=== PATIENT | male | born 1935 | race Caucasian/White ===

== ENCOUNTER 2016-11-24 22:29 | Emergency (ER) | payer BC ==
[~2016-11-24] VITALS: Ht 165.1 cm; Wt 86.2 kg
[2016-11-25 00:54] VITALS: BP 133/69
== END 2016-11-25 00:55 | disposition home or self-care (01) ==
LOC: ER 22:35
DX: S47.1XXA Crushing injury of right shoulder and upper arm, initial encounter (principal); I10 Essential (primary) hypertension; I25.2 Old myocardial infarction; Z95.811 Presence of heart assist device; W01.198A Fall on same level from slipping, tripping and stumbling with subsequent striking against other object, initial encounter; Y93.89 Activity, other specified; Y92.89 Other specified places as the place of occurrence of the external cause; Y99.8 Other external cause status
CPT/HCPCS: 73030; 99284; A4606; Z7610

== ENCOUNTER 2019-03-26 14:23 | Emergency (ER) | payer BC ==
[~2019-03-26] VITALS: Ht 165.1 cm; Wt 81.6 kg
[2019-03-26 14:23] VITALS: BP 116/73
[2019-03-26 15:12] LABS: APPEARANCE,URINE Clear (CLEAR); BILIRUBIN,URINE Negative (NEGATIVE); BLOOD, URINE Negative Ery/uL (NEGATIVE); COLOR,URINE Yellow (YELLOW); KETONES,URINE Negative (NEGATIVE); LEUKOCYTE ESTERASE ,URINE Negative (NEGATIVE); NITRITE, URINE Negative (NEGATIVE); PROTEIN,URINE 30 mg/dl (NEGATIVE); UGLUCOSE Negative (NEGATIVE); UROBILINOGEN,URINE 0.2 EU/dL (0.2)
--- NOTE | 2019-03-26 15:40 | NUR ---
CALLED [facility] TO READ IMAGES
[2019-03-26] MEDS ORDERED: LACTULOSE 10 G/15 ML UDC (PYXIS) GT ONE (16:00)
[2019-03-26] MEDS ORDERED: MAGNESIUM CITRATE 296 ML BOTTLE PO ONE (16:00)
== END 2019-03-26 16:20 | disposition home or self-care (01) ==
LOC: ER 14:26
DX: K59.00 Constipation, unspecified (principal); I10 Essential (primary) hypertension; I25.2 Old myocardial infarction; E78.00 Pure hypercholesterolemia, unspecified; Z95.5 Presence of coronary angioplasty implant and graft; Z98.890 Other specified postprocedural states; Z95.1 Presence of aortocoronary bypass graft
CPT/HCPCS: 74022-TC; 81000-TC

== ENCOUNTER 2019-08-06 07:37 | Emergency (ER) | payer BC ==
[~2019-08-06] VITALS: Ht 157.5 cm; Wt 87.5 kg
[2019-08-06] MEDS ORDERED: IV NS 0.9% 500 ML BAG IV ONE (08:30)
[2019-08-06 08:51] LABS: BASOPHILS # (AUTO) 0.1 /CMM (0.0-0.2); BASOPHILS % (AUTO) 1.3 % (0.0-2.0); EOSINOPHILS % (AUTO) 2.9 % (0.0-6.0); HEMATOCRIT 32 % (39-51); HEMOGLOBIN 10.5 g/dL (13.5-17.5); LYMPHOCYTES % (AUTO) 13.6 % (20.0-44.0); MEAN CORPUSCULAR HGB CONC 33 g/dl (31.0-36.0); MEAN CORPUSCULAR VOLUME 93 fL (80-96); MONOCYTES # (AUTO) 0.7 /CMM (0.1-1.30); MONOCYTES % (AUTO) 8.8 % (2.0-12.0); NEUTROPHILS # (AUTO) 5.6 /CMM (1.8-8.9); NEUTROPHILS % (AUTO) 73.4 % (43.0-81.0); PLATELET COUNT (AUTO) 157 /CMM (150-450); RED BLOOD CELL COUNT(AUTO) 3.42 MIL/uL (4.5-6.0); WHITE BLOOD COUNT (AUTO) 7.6 K/uL (4.3-11.0)
[2019-08-06 08:52] LABS: CALCIUM, SERUM 8.4 mg/dL (8.5-10.1); CARBON DIOXIDE 36 mmol/L (21-32); CHLORIDE 104 mmol/L (98-107); CREATININE 2.1 mg/dL (0.6-1.3); GLUCOSE 116 mg/dL (74-106); POTASSIUM 4.8 mmol/L (3.5-5.1); SODIUM SERUM 141 mmol/L (136-145); UREA NITROGEN, BLOOD 38 mg/dL (7-18)
--- NOTE | 2019-08-06 09:00 | NUR ---
Family at bedside both aware of plan of care
[2019-08-06] MEDS ORDERED: ASPI-605 PO (09:53)
[2019-08-06] MEDS ORDERED: AMLO5TAB9 PO (09:53)
[2019-08-06] MEDS ORDERED: CARV12.52 PO (09:53)
[2019-08-06] MEDS ORDERED: FAMO20TA8 PO (09:53)
[2019-08-06] MEDS ORDERED: FURO20TA4 PO (09:53)
[2019-08-06] MEDS ORDERED: ROSU20TA32 PO (09:53)
[2019-08-06] MEDS ORDERED: METO5TAB7 PO (09:53)
[2019-08-06] MEDS ORDERED: LEVO25TA9 PO (09:53)
[2019-08-06] MEDS ORDERED: FURO40TA5 PO (09:53)
[2019-08-06] MEDS ORDERED: CLOP75TA15 PO (09:53)
[2019-08-06] MEDS ORDERED: AMIO200T4 PO (09:53)
[2019-08-06] MEDS ORDERED: BENA40TA8 PO (09:53)
[2019-08-06] MEDS ORDERED: ERGO500040 PO (09:53)
--- NOTE | 2019-08-06 10:36 | NUR ---
Sleeping on/off appears in NO acute distress updated with plan
--- NOTE | 2019-08-06 12:29 | NUR ---
Patient discharged to home in stable condition. Written and verbal after care instructions given. Patient verbalizes understanding of instruction. IV removed. Catheter intact and site benign. Pressure and 4x4 applied to site. No bleeding noted.
[2019-08-06 12:52] VITALS: BP 131/85
== END 2019-08-06 12:53 | disposition home or self-care (01) ==
LOC: ER 07:37
DX: K56.7 Ileus, unspecified (principal); I10 Essential (primary) hypertension; I25.2 Old myocardial infarction; Z95.818 Presence of other cardiac implants and grafts; Z79.899 Other long term (current) drug therapy; Z79.82 Long term (current) use of aspirin
CPT/HCPCS: 36415; 74021; 80048; 85025; 99284; J7040

== ENCOUNTER 2020-08-17 19:51 | Emergency (ER) | payer BC, MEDICARE ==
[~2020-08-17] VITALS: Ht 165.1 cm; Wt 81.6 kg
[~2020-08-17 19:51] MED LIST: AMIO200T4 PO; AMLO5TAB9 PO; ASPI-605 PO; BENA40TA8 PO; CARV12.52 PO; CLOP75TA15 PO; ERGO500040 PO; FAMO20TA8 PO; FURO20TA4 PO; LEVO25TA9 PO; METO5TAB7 PO; ROSU20TA32 PO
--- NOTE | 2020-08-17 20:03 | NUR ---
PT AAOX4. BIBSELF C/O CHRONIC CONSIPATION. PER PT LAST BM 3DAYS AGO, TAKES MAG CITRATE/DSS/AMITIZA. PT PLACED IN A GOWN, ON MONITOR AND PULSE OX. VSS.
[2020-08-17] MEDS ORDERED: BISACODYL SUPP (10 MG) 10 MG/SUPP.RECT SUPP.RECT RC ONE ×2 (20:30→20:51)
--- NOTE | 2020-08-17 20:42 | NUR ---
LINE ESTABLISHED, BLOOD SENT TO LAB
[2020-08-17 21:07] LABS: BASOPHILS # (AUTO) 0.1 /CMM (0.0-0.2); BASOPHILS % (AUTO) 0.8 % (0.0-2.0); HEMATOCRIT 35 % (39-51); HEMOGLOBIN 10.8 g/dL (13.5-17.5); LYMPHOCYTES # (AUTO) 1.2 /CMM (0.8-4.8); LYMPHOCYTES % (AUTO) 18.3 % (20.0-44.0); MEAN CORPUSCULAR HGB CONC 31 g/dl (31.0-36.0); MEAN CORPUSCULAR VOLUME 90 fL (80-96); MONOCYTES # (AUTO) 0.4 /CMM (0.1-1.30); MONOCYTES % (AUTO) 6.4 % (2.0-12.0); NEUTROPHILS # (AUTO) 4.6 /CMM (1.8-8.9); NEUTROPHILS % (AUTO) 71.5 % (43.0-81.0); PLATELET COUNT (AUTO) 164 /CMM (150-450); RED BLOOD CELL COUNT(AUTO) 3.82 MIL/uL (4.5-6.0); WHITE BLOOD COUNT (AUTO) 6.4 K/uL (4.3-11.0)
[2020-08-17 21:13] LABS: ALANINE AMINOTRANSFERASE 18 U/L (12-78); ALBUMIN 3.5 g/dL (3.4-5.0); ALKALINE PHOSPHATASE 77 U/L (46-116); ASPARTATE AMINOTRANSFERASE 21 U/L (15-37); BILIRUBIN,DIRECT 0.2 mg/dL (0.0-0.2); BILIRUBIN,TOTAL 0.6 mg/dL (0.2-1.0); CALCIUM, SERUM 8.5 mg/dL (8.5-10.1); CARBON DIOXIDE 28 mmol/L (21-32); CHLORIDE 103 mmol/L (98-107); CREATININE 1.5 mg/dL (0.6-1.3); GLUCOSE 100 mg/dL (74-106); LIPASE 78 U/L (73-393); POTASSIUM 4.5 mmol/L (3.5-5.1); SODIUM SERUM 137 mmol/L (136-145); TOTAL PROTEIN, SERUM 7.7 g/dL (6.4-8.2); UREA NITROGEN, BLOOD 21 mg/dL (7-18)
[2020-08-17] MEDS ORDERED: IOHEXOL-300 100 ML VIAL IV ONE (21:25)
[2020-08-17] MEDS ORDERED: IV NS 0.9% 250 ML IV ONE (21:25)
[2020-08-17] MEDS ORDERED: CT SWABBABLE VALVE TRANS SET 1 EA INFUS.SET MC ONE (21:25)
--- NOTE | 2020-08-17 21:25 | NUR ---
RADIOLOGIST SPEAKING TO REGARDING CT W.
--- NOTE | 2020-08-17 23:03 | NUR ---
Patient discharged to home in stable condition. Written and verbal after care instructions given. Patient verbalizes understanding of instruction and RX. Pt ambulated with steady gait. vss.
--- NOTE | 2020-08-17 23:03 | NUR ---
IV removed. Catheter intact and site benign. Pressure and 4x4 applied to site. No bleeding noted.
[2020-08-17 23:04] VITALS: BP 134/72
== END 2020-08-17 23:04 | disposition home or self-care (01) ==
LOC: ER 19:52
DX: K59.00 Constipation, unspecified (principal); I10 Essential (primary) hypertension; E78.00 Pure hypercholesterolemia, unspecified; I25.2 Old myocardial infarction; Z95.5 Presence of coronary angioplasty implant and graft; Z95.1 Presence of aortocoronary bypass graft; Z79.82 Long term (current) use of aspirin; Z79.899 Other long term (current) drug therapy
CPT/HCPCS: 36415; 74176; 80048; 80076; 83690; 85025; 99284; J7050; Q9967

== ENCOUNTER 2020-10-06 18:53 | Emergency (ER) | payer BC ==
[~2020-10-06] VITALS: Ht 165.1 cm; Wt 83.9 kg
[~2020-10-06 18:53] MED LIST changes: -AMIO200T4 PO; +AMIO200T5 PO; +AMLO-212 PO; -AMLO5TAB9 PO
--- NOTE | 2020-10-06 20:22 | NUR ---
PATIENT CAME TO ER BED 12 C/O CONSTIPATION FOR THE LAST 4x DAYS. PATIENT STATES THAT HE HAS BEEN TAKING A MEDICATION FOR CONSTIPATION, BUT IT ISN'T HELPING. PATIENT IS AAOX4. NO SOB .BREATHING EVENLY AND UNLABORED ON ROOM AIR. CONNECTED TO THE MONITOR.
[2020-10-06 20:54] LABS: BASOPHILS # (AUTO) 0.1 /CMM (0.0-0.2); BASOPHILS % (AUTO) 0.8 % (0.0-2.0); EOSINOPHILS % (AUTO) 2.9 % (0.0-6.0); HEMATOCRIT 35 % (39-51); HEMOGLOBIN 11.1 g/dL (13.5-17.5); LYMPHOCYTES # (AUTO) 1.4 /CMM (0.8-4.8); LYMPHOCYTES % (AUTO) 17.6 % (20.0-44.0); MEAN CORPUSCULAR HGB CONC 32 g/dl (31.0-36.0); MEAN CORPUSCULAR VOLUME 88 fL (80-96); MONOCYTES # (AUTO) 0.6 /CMM (0.1-1.30); MONOCYTES % (AUTO) 7.5 % (2.0-12.0); NEUTROPHILS # (AUTO) 5.8 /CMM (1.8-8.9); NEUTROPHILS % (AUTO) 71.2 % (43.0-81.0); PLATELET COUNT (AUTO) 183 /CMM (150-450); RED BLOOD CELL COUNT(AUTO) 3.95 MIL/uL (4.5-6.0); WHITE BLOOD COUNT (AUTO) 8.1 K/uL (4.3-11.0)
[2020-10-06 21:06] LABS: CARBON DIOXIDE 32 mmol/L (21-32); CHLORIDE 99 mmol/L (98-107); CREATININE 1.7 mg/dL (0.6-1.3); GLUCOSE 98 mg/dL (74-106); POTASSIUM 3.7 mmol/L (3.5-5.1); SODIUM SERUM 138 mmol/L (136-145); UREA NITROGEN, BLOOD 39 mg/dL (7-18)
[2020-10-06 21:11] LABS: ALANINE AMINOTRANSFERASE 16 U/L (12-78); ALBUMIN 3.6 g/dL (3.4-5.0); ALKALINE PHOSPHATASE 69 U/L (46-116); ASPARTATE AMINOTRANSFERASE 24 U/L (15-37); BILIRUBIN,DIRECT 0.2 mg/dL (0.0-0.2); BILIRUBIN,TOTAL 0.4 mg/dL (0.2-1.0); LIPASE 100 U/L (73-393); TOTAL PROTEIN, SERUM 7.7 g/dL (6.4-8.2)
[2020-10-06] MEDS ORDERED: IV NS 0.9% 500 ML BAG IV ONE (21:30)
[2020-10-06] MEDS ORDERED: BISACODYL SUPP (10 MG) 10 MG/SUPP.RECT SUPP.RECT RC ONE ×2 (21:53→22:00)
[2020-10-06] MEDS ORDERED: NA PHOS,M-B/NA PHOS,DI-BA 1 EA ENEMA RC ONE (22:00)
[2020-10-06] MEDS ORDERED: MINERAL OIL 133 ML (PYXIS) 1 EA ENEMA RC ONE (22:10)
--- NOTE | 2020-10-06 22:36 | NUR ---
AMBULATED TO THE RESTROOM WITH A STEADY GAIT.
--- NOTE | 2020-10-06 23:07 | NUR ---
IV removed. Catheter intact and site benign. Pressure and 4x4 applied to site. No bleeding noted.
--- NOTE | 2020-10-06 23:07 | NUR ---
Patient discharged to home in stable condition. Written and verbal after care instructions given. Patient verbalizes understanding of instruction.
[2020-10-06 23:58] VITALS: BP 112/72
== END 2020-10-06 23:58 | disposition home or self-care (01) ==
LOC: ER 18:58
DX: K59.00 Constipation, unspecified (principal); I10 Essential (primary) hypertension; I25.10 Atherosclerotic heart disease of native coronary artery without angina pectoris; E78.5 Hyperlipidemia, unspecified; E03.9 Hypothyroidism, unspecified; I25.2 Old myocardial infarction; Z95.818 Presence of other cardiac implants and grafts; Z79.899 Other long term (current) drug therapy; Z79.82 Long term (current) use of aspirin
CPT/HCPCS: 36415; 80048-TC; 80076-TC; 83690-TC; 85025-TC

== ENCOUNTER 2021-05-30 14:53 | Emergency (ER) | payer BC ==
[~2021-05-30] VITALS: Ht 167.6 cm; Wt 79.4 kg
--- NOTE | 2021-05-30 15:20 | NUR ---
DR ALFARO AT BEDSIDE FOR EVAL.
--- NOTE | 2021-05-30 15:55 | NUR ---
IV LINE STARTED BLOOD DRAWN AND SENT TO LAB.
[2021-05-30] MEDS ORDERED: DIAZEPAM 5 MG TABLET ONE (16:01)
[2021-05-30] MEDS ORDERED: KETOROLAC TROMETHAMINE INJ 30 MG/ML VIAL ONE (16:02)
[2021-05-30] MEDS: DIAZEPAM 5 MG TABLET PO ONE (16:05)
[2021-05-30] MEDS: KETOROLAC TROMETHAMINE INJ 60 MG/2 ML VIAL IM ONE (16:05)
--- NOTE | 2021-05-30 16:06 | NUR ---
PT TO RADIOLOGY FOR HEAD CT SCAN VIA [facility].
[2021-05-30 16:14] LABS: HEMOGLOBIN 12.8 g/dL (13.5-17.5)
[2021-05-30 16:19] LABS: BASOPHILS % (AUTO) 0.4 % (0.0-2.0); EOSINOPHILS % (AUTO) 0.4 % (0.0-6.0); HEMATOCRIT 39 % (39-51); LYMPHOCYTES # (AUTO) 1.1 K/uL (0.8-4.8); LYMPHOCYTES % (AUTO) 11.4 % (20.0-44.0); MEAN CORPUSCULAR HGB CONC 33 g/dl (31.0-36.0); MEAN CORPUSCULAR VOLUME 87 fL (80-96); MONOCYTES # (AUTO) 0.6 K/uL (0.1-1.30); MONOCYTES % (AUTO) 5.8 % (2.0-12.0); NEUTROPHILS # (AUTO) 7.9 K/uL (1.8-8.9); PLATELET COUNT (AUTO) 214 K/uL (150-450); RED BLOOD CELL COUNT(AUTO) 4.52 MIL/uL (4.5-6.0); WHITE BLOOD COUNT (AUTO) 9.6 K/uL (4.3-11.0)
[2021-05-30 16:22] LABS: ALBUMIN 3.5 g/dL (3.4-5.0); BILIRUBIN,DIRECT 0.2 mg/dL (0.0-0.2); BILIRUBIN,TOTAL 0.8 mg/dL (0.2-1.0); CALCIUM, SERUM 8.8 mg/dL (8.5-10.1); CREATININE 1.3 mg/dL (0.6-1.3); POTASSIUM 4.5 mmol/L (3.5-5.1); TOTAL PROTEIN, SERUM 7.7 g/dL (6.4-8.2)
[2021-05-30] MEDS ORDERED: NAPR-1164 PO (17:13)
[2021-05-30] MEDS ORDERED: CYCL10TA9 PO (17:13)
--- NOTE | 2021-05-30 17:28 | NUR ---
Patient discharged to home in stable condition. Written and verbal after care instructions given. Patient verbalizes understanding of instruction.IV removed. Catheter intact and site benign. Pressure and 4x4 applied to site. No bleeding noted.
[2021-05-30 17:29] VITALS: BP 152/82
== END 2021-05-30 17:29 | disposition home or self-care (01) ==
LOC: ER 15:00
DX: M54.2 Cervicalgia (principal); R51.9 Headache, unspecified; I25.10 Atherosclerotic heart disease of native coronary artery without angina pectoris; I10 Essential (primary) hypertension; E78.5 Hyperlipidemia, unspecified; E03.9 Hypothyroidism, unspecified; I25.2 Old myocardial infarction; Z95.5 Presence of coronary angioplasty implant and graft; Z95.1 Presence of aortocoronary bypass graft; Z95.4 Presence of other heart-valve replacement; Z79.82 Long term (current) use of aspirin; Z79.899 Other long term (current) drug therapy
CPT/HCPCS: 70450; 71045; 72125; 80048; 80076; 85025; 93005; 96374; 99285; J1885

== ENCOUNTER 2021-06-21 15:57 | Emergency (ER) | payer BC ==
[~2021-06-21] VITALS: Ht 157.5 cm; Wt 83.9 kg
[~2021-06-21 15:57] MED LIST changes: +CYCL10TA9 PO; +NAPR-1164 PO
--- NOTE | 2021-06-21 15:57 | NUR ---
PT BIB C/O ABDOMINAL PAIN AND CONSTIPATION FOR 2 DAYS. PT IS AAOX4, NOT IN RESPIRATORY DISTRESS, V/S STABLE, KEPT RESTED AND COMFORTABLE. WILL CONTINUE TO MONITOR.
--- NOTE | 2021-06-21 16:45 | NUR ---
SEEN AND EXAMINED BY .
--- NOTE | 2021-06-21 16:52 | NUR ---
ER PHLEB AT BEDSIDE FOR BLOOD DRAW.
[2021-06-21 17:32] LABS: BASOPHILS % (AUTO) 0.6 % (0.0-2.0); EOSINOPHILS % (AUTO) 2.8 % (0.0-6.0); HEMATOCRIT 36 % (39-51); HEMOGLOBIN 11.6 g/dL (13.5-17.5); LYMPHOCYTES # (AUTO) 1.5 K/uL (0.8-4.8); LYMPHOCYTES % (AUTO) 21.7 % (20.0-44.0); MEAN CORPUSCULAR HGB CONC 33 g/dl (31.0-36.0); MEAN CORPUSCULAR VOLUME 88 fL (80-96); MONOCYTES # (AUTO) 0.6 K/uL (0.1-1.30); MONOCYTES % (AUTO) 8.7 % (2.0-12.0); NEUTROPHILS # (AUTO) 4.5 K/uL (1.8-8.9); NEUTROPHILS % (AUTO) 66.2 % (43.0-81.0); PLATELET COUNT (AUTO) 184 K/uL (150-450); RED BLOOD CELL COUNT(AUTO) 4.04 MIL/uL (4.5-6.0); WHITE BLOOD COUNT (AUTO) 6.9 K/uL (4.3-11.0)
--- NOTE | 2021-06-21 17:44 | NUR ---
PT IS WHEELED TO CT SCAN VIA [facility].
[2021-06-21 17:48] LABS: ALANINE AMINOTRANSFERASE 22 U/L (12-78); ALBUMIN 3.6 g/dL (3.4-5.0); ALKALINE PHOSPHATASE 79 U/L (46-116); ASPARTATE AMINOTRANSFERASE 19 U/L (15-37); BILIRUBIN,TOTAL 0.5 mg/dL (0.2-1.0); CALCIUM, SERUM 8.4 mg/dL (8.5-10.1); CARBON DIOXIDE 30 mmol/L (21-32); CHLORIDE 108 mmol/L (98-107); CREATININE 1.6 mg/dL (0.6-1.3); GLUCOSE 105 mg/dL (74-106); POTASSIUM 4.5 mmol/L (3.5-5.1); SODIUM SERUM 145 mmol/L (136-145); TOTAL PROTEIN, SERUM 7.3 g/dL (6.4-8.2); UREA NITROGEN, BLOOD 29 mg/dL (7-18)
[2021-06-21] MEDS ORDERED: NA PHOS,M-B/NA PHOS,DI-BA 1 EA ENEMA RC ONE ×2 (18:59→19:00)
--- NOTE | 2021-06-21 19:45 | NUR ---
PATIENT REPORTED 2 BM.
[2021-06-21 20:58] LABS: BILIRUBIN,URINE NEGATIVE (NEGATIVE); COLOR,URINE YELLOW (YELLOW); LEUKOCYTE ESTERASE ,URINE NEGATIVE (NEGATIVE); NITRITE, URINE NEGATIVE (NEGATIVE); PH,URINE 7.5 (5.0-8.0); PROTEIN,URINE NEGATIVE (NEGATIVE); UGLUCOSE NEGATIVE (NEGATIVE); UROBILINOGEN,URINE 0.2 EU/dL (0.2)
[2021-06-21 20:59] LABS: BACTERIA,URINE Few /HPF (None Seen); SQUAMOUS EPITHELIAL CELL,UR Few /HPF (None Seen); WBC,URINE 0-2 /HPF (0-3)
--- NOTE | 2021-06-21 21:17 | NUR ---
Patient discharged to home in stable condition. Written and verbal after care instructions given. Patient verbalizes understanding of instruction.
[2021-06-21 21:18] VITALS: BP 122/61
== END 2021-06-21 21:20 | disposition home or self-care (01) ==
LOC: ER 16:34
DX: R10.30 Lower abdominal pain, unspecified (principal); K59.00 Constipation, unspecified; I10 Essential (primary) hypertension; I25.2 Old myocardial infarction; Z98.890 Other specified postprocedural states; Z95.818 Presence of other cardiac implants and grafts; Z79.899 Other long term (current) drug therapy; Z79.82 Long term (current) use of aspirin
CPT/HCPCS: 36415; 80053-TC; 81001; 85025-TC

== ENCOUNTER 2021-09-03 16:18 | Inpatient (IN) | payer BC ==
[~2021-09-03] VITALS: Ht 165.1 cm; Wt 81.6 kg
--- NOTE | 2021-09-03 16:18 | NUR ---
PT BIB SELF C/O CONSTIPATED,NO BM X 2 DAYS. PT IS AAOX4, NOT IN RESPIRATORY DISTRESS, V/S STABLE, KEPT RESTED AND COMFORTABLE. WILL CONTINUE TO MONITOR.
--- NOTE | 2021-09-03 16:39 | NUR ---
SEEN AND EXAMINED BY .
--- NOTE | 2021-09-03 16:55 | NUR ---
ER PHLEB AT BEDSIDE FOR BLOOD DRAW.
[2021-09-03 17:10] LABS: BASOPHILS # (AUTO) 0.1 K/uL (0.0-0.2); BASOPHILS % (AUTO) 0.6 % (0.0-2.0); EOSINOPHILS % (AUTO) 2.6 % (0.0-6.0); HEMATOCRIT 37 % (39-51); HEMOGLOBIN 12.1 g/dL (13.5-17.5); LYMPHOCYTES # (AUTO) 1.5 K/uL (0.8-4.8); LYMPHOCYTES % (AUTO) 17.5 % (20.0-44.0); MEAN CORPUSCULAR HGB CONC 33 g/dl (31.0-36.0); MEAN CORPUSCULAR VOLUME 93 fL (80-96); MONOCYTES # (AUTO) 0.7 K/uL (0.1-1.30); MONOCYTES % (AUTO) 7.9 % (2.0-12.0); NEUTROPHILS # (AUTO) 6.1 K/uL (1.8-8.9); NEUTROPHILS % (AUTO) 71.4 % (43.0-81.0); PLATELET COUNT (AUTO) 207 K/uL (150-450); RED BLOOD CELL COUNT(AUTO) 3.98 MIL/uL (4.5-6.0); WHITE BLOOD COUNT (AUTO) 8.5 K/uL (4.3-11.0)
[2021-09-03 17:25] LABS: CALCIUM, SERUM 8.4 mg/dL (8.5-10.1); CARBON DIOXIDE 25 mmol/L (21-32); CHLORIDE 106 mmol/L (98-107); CREATININE 1.7 mg/dL (0.6-1.3); GLUCOSE 126 mg/dL (74-106); POTASSIUM 4.3 mmol/L (3.5-5.1); SODIUM SERUM 142 mmol/L (136-145); UREA NITROGEN, BLOOD 27 mg/dL (7-18)
[2021-09-03 17:32] LABS: ALANINE AMINOTRANSFERASE 16 U/L (12-78); ALBUMIN 3.6 g/dL (3.4-5.0); ALKALINE PHOSPHATASE 72 U/L (46-116); ASPARTATE AMINOTRANSFERASE 22 U/L (15-37); BILIRUBIN,DIRECT 0.1 mg/dL (0.0-0.2); BILIRUBIN,TOTAL 0.4 mg/dL (0.2-1.0); LIPASE 110 U/L (73-393); TOTAL PROTEIN, SERUM 7.4 g/dL (6.4-8.2)
[2021-09-03] MEDS ORDERED: BISACODYL SUPP (10 MG) 10 MG/SUPP.RECT SUPP.RECT RC ONE (19:00)
[2021-09-03] MEDS ORDERED: ASPIRIN 81 MG TAB.CHEW PO ONE (19:00)
--- NOTE | 2021-09-03 19:03 | NUR ---
GRADER MARKER AT BEDSIDE.
--- NOTE | 2021-09-03 19:24 | NUR ---
covid swab collected and sent to lab
[2021-09-03] MEDS ORDERED: RIVA15TA PO (21:01)
[2021-09-03] MEDS ORDERED: SACU1TAB7 PO (21:01)
--- NOTE | 2021-09-04 | NUR ---
PATIENT RESTING IN BED, PROVIDED WITH URINAL. PATIENT VSS. PATIENT CONNECTED TO MATERIAL CONTROL SUPERVISOR AND POX. WILL CONTINUE TO MONITOR.
[2021-09-04] MEDS ORDERED: ZOLPIDEM TARTRATE 5 MG TABLET PO PRN (01:00)
[2021-09-04] MEDS ORDERED: ACETAMINOPHEN 325 MG TABLET PO PRN (01:00)
[2021-09-04] MEDS ORDERED: ATORVASTATIN 40 MG TABLET PO ONE (02:30)
[2021-09-04] MEDS ORDERED: ATORVASTATIN 40 MG TABLET ONE (05:07)
[2021-09-04 05:35] LABS: BASOPHILS # (AUTO) 0.1 K/uL (0.0-0.2); BASOPHILS % (AUTO) 0.8 % (0.0-2.0); EOSINOPHILS % (AUTO) 4.8 % (0.0-6.0); HEMATOCRIT 37 % (39-51); HEMOGLOBIN 12.1 g/dL (13.5-17.5); LYMPHOCYTES # (AUTO) 1.4 K/uL (0.8-4.8); LYMPHOCYTES % (AUTO) 19.9 % (20.0-44.0); MEAN CORPUSCULAR HGB CONC 33 g/dl (31.0-36.0); MEAN CORPUSCULAR VOLUME 93 fL (80-96); MONOCYTES # (AUTO) 0.6 K/uL (0.1-1.30); MONOCYTES % (AUTO) 8.5 % (2.0-12.0); NEUTROPHILS # (AUTO) 4.6 K/uL (1.8-8.9); PLATELET COUNT (AUTO) 174 K/uL (150-450); RED BLOOD CELL COUNT(AUTO) 3.94 MIL/uL (4.5-6.0)
[2021-09-04 05:52] LABS: CALCIUM, SERUM 8.4 mg/dL (8.5-10.1); CARBON DIOXIDE 32 mmol/L (21-32); CHLORIDE 106 mmol/L (98-107); CREATININE 1.5 mg/dL (0.6-1.3); GLUCOSE 93 mg/dL (74-106); POTASSIUM 4.1 mmol/L (3.5-5.1); SODIUM SERUM 142 mmol/L (136-145); UREA NITROGEN, BLOOD 23 mg/dL (7-18)
[2021-09-04 05:59] LABS: CHOLESTEROL 136 mg/dL (<200); HDL CHOLESTEROL 53 mg/dL (40-60); LDL 67 mg/dL (0-99); TRIGLYCERIDES 91 mg/dL (30-150)
--- NOTE | 2021-09-04 07:26 | NUR ---
ASSESSED PT ON BED ASLEEP EASILY AROSAUBLE, AAOX4, NOT IN RESPIRATORY DISTRESS, V/S STABLE, KEPT RESTED AND COMFORTABLE. WILL CONTINUE TO MONITOR.
[2021-09-04] MEDS ORDERED: LEVOTHYROXINE SODIUM 25 MCG TABLET PO SCH (07:30)
[2021-09-04] MEDS ORDERED: LEVOTHYROXINE SODIUM 25 MCG TABLET ONE (07:33)
--- NOTE | 2021-09-04 07:52 | NUR ---
REPORT GIVEN TO HODA BREWER FOR MAXIMILIAN.
[2021-09-04] MEDS ORDERED: CLOPIDOGREL BISULFATE 75 MG TABLET PO ONE (09:00)
[2021-09-04] MEDS ORDERED: SACUBITRIL PO SCH (09:00)
[2021-09-04] MEDS ORDERED: FUROSEMIDE 40 MG TABLET PO ONE (09:00)
[2021-09-04] MEDS ORDERED: POLYETHYLENE GLYCOL 3350 17 GM POWD.PACK PO SCH (09:00)
[2021-09-04] MEDS ORDERED: BISACODYL (5 MG) 5 MG TABLET.DR PO PRN (09:00)
[2021-09-04] MEDS ORDERED: VALSARTAN PO SCH (09:00)
[2021-09-04] MEDS ORDERED: CARVEDILOL 6.25 MG TABLET PO ONE (09:00)
[2021-09-04] MEDS ORDERED: FUROSEMIDE 40 MG TABLET PO SCH (09:00)
[2021-09-04] MEDS ORDERED: CLOPIDOGREL BISULFATE 75 MG TABLET PO SCH (09:00)
[2021-09-04 10:00] VITALS: BP 141/80
--- NOTE | 2021-09-04 10:21 | NUR ---
TELE/RN NOTES ADMITTED A 85Y/O MALE PATIENT. PATIENT WAS AWAKE ALERT AND ORIENTED X4. PATIENT IN ROOM AIR. PATIENT IN NO APPARENT RESPIRATORY DISTRESS NOTED. NO COMPLAINED OF PAIN NOTED. PATIENT REFUSED TO HAVE SKIN CHECK AND PATIENT VERBALIZED HE DOESN'T HAVE SKIN PROBLEM OR WOUND. INITIAL ASSESSMENT WAS DONE AND RECORDED. TELE MONITOR WAS IN PLACED WITH READING SINUS RHYTHM 71BPM. WILL CONTINUE TO MONITOR.
[2021-09-04] MEDS ORDERED: METOPROLOL TARTRATE INJ 5 MG/5 ML AMPUL ONE (10:24)
[2021-09-04] MEDS ORDERED: NITROGLYCERIN 0.4 MG/TAB BOTTLE ONE (10:25)
--- NOTE | 2021-09-04 10:26 | NUR ---
TELE/RN NOTES PATIENT IS OUT IN THE ROOM WASHER OFF BY ROSAMARIA DRUMMOND FOR CTA.
[2021-09-04] MEDS ORDERED: NITROGLYCERIN 0.4 MG/TAB BOTTLE SL ONE (10:30)
[2021-09-04] MEDS ORDERED: IV NS 0.9% 500 ML IV PRN (10:30)
[2021-09-04] MEDS ORDERED: METOPROLOL TARTRATE INJ 5 MG/5 ML AMPUL IVP PRN (10:30)
--- NOTE | 2021-09-04 10:57 | NUR ---
aao, consented to CTA heart; denies CP or SOB; SBP 70s' no metoprolol no NTG given; CTA heart completed; report given to Pritesh ; aware of need to monitor blood pressure; sent back to floor via bed
--- NOTE | 2021-09-04 11:06 | NUR ---
rn notes patient comeback in the room. patient no sob noted. vital sign taken and recorded. will continue to monitor.
[2021-09-04 11:10] VITALS: BP 99/54
[2021-09-04 11:25] VITALS: BP 95/55
[2021-09-04 12:50] VITALS: BP 116/71
[2021-09-04] MEDS ORDERED: RIVAROXABAN 15 MG TABLET PO SCH (17:00)
--- NOTE | 2021-09-04 17:36 | NUR ---
RN/NOTES PATIENT IS ALERT AND ORIENTEDX4. PATIENT IS ON ROOM AIR. PATIENT IN NO APPARENT RESPIRATORY DISTRESS NOTED. NO COMPLAINED OF PAIN NOTED. SEEN AND EXAMINED BY MD WITH ORDERS MADE AND CARRIED OUT. ALL DUE MEDICATIONS WAS GIVEN. DISCHARGED INSTRUCTIONS WAS GIVEN AND PATIENT VERBALIZED UNDERSTANDING. PATIENT LEFT THE HOSPITAL IN MEDICALLY STABLE CONDITION. PATIENT IS A SELF CARE AND DRIVE HOME.
[2021-09-04] MEDS ORDERED: TAMSULOSIN 0.4 MG CAP.SR.24H PO SCH (22:00)
== END 2021-09-04 17:45 | disposition home or self-care (01) | DRG 392 ==
LOC: ER 16:21 → TRANSITION 09-04 01:58 → TELE 09-04 07:45
PROVIDERS: ADMIT Internal Medicine; ATTEND Internal Medicine
DX: K59.09 Other constipation (principal); I50.22 Chronic systolic (congestive) heart failure; I13.0 Hypertensive heart and chronic kidney disease with heart failure and stage 1 through stage 4 chronic kidney disease, or unspecified chronic kidney disease; E03.9 Hypothyroidism, unspecified; E78.5 Hyperlipidemia, unspecified; I25.10 Atherosclerotic heart disease of native coronary artery without angina pectoris; Z79.82 Long term (current) use of aspirin; Z95.5 Presence of coronary angioplasty implant and graft; Z20.822 Contact with and (suspected) exposure to COVID-19; I48.91 Unspecified atrial fibrillation; N18.30 Chronic kidney disease, stage 3 unspecified; Z95.0 Presence of cardiac pacemaker; Z79.01 Long term (current) use of anticoagulants; R53.1 Weakness; N40.0 Benign prostatic hyperplasia without lower urinary tract symptoms; Z95.1 Presence of aortocoronary bypass graft; Z79.899 Other long term (current) drug therapy
CPT/HCPCS: 36415; 71045-TC; 75574; 80048-TC; 80061-TC; 80076-TC; 83690-TC; 84484-TC; 85025-TC; 87081-TC; 93307-TC; C9803; G0378; J3490; J7030

== ENCOUNTER 2022-04-29 00:22 | Emergency (ER) | payer BC ==
[~2022-04-29] VITALS: Ht 170.2 cm; Wt 81.6 kg
[~2022-04-29 00:22] MED LIST changes: -AMIO200T5 PO; -AMLO-212 PO; -ASPI-605 PO; -BENA40TA8 PO; -ERGO500040 PO; -FAMO20TA8 PO; -METO5TAB7 PO; +RIVA15TA PO; +SACU1TAB7 PO
[2022-04-29] MEDS ORDERED: ONDANSETRON HCL/PF 4 MG/2 ML VIAL ONE (00:49)
[2022-04-29] MEDS ORDERED: MORPHINE SULFATE INJ 4 MG/ML DISP.SYRIN ONE (00:49)
[2022-04-29] MEDS: ONDANSETRON HCL/PF - ER 4 MG/2 ML VIAL IV ONE (00:54)
[2022-04-29] MEDS: IV NS 0.9% 1,000 ML IV ONE (00:54)
[2022-04-29] MEDS: MORPHINE SULFATE INJ 2 MG/ML DISP.SYRIN IV ONE (00:54)
--- NOTE | 2022-04-29 00:56 | NUR ---
PATIENT BIB C/O ABD PAIN AND CONSTIPATION X 3 DAYS. PATIENT IS A/O X 4, RR EVEN AND UNLABORED, NO SOB NOTED, TAKEN TO ER BED 06. PATIENT CONNECTED TO CARDIAC AND POX MONITOR.
[2022-04-29 01:15] LABS: BASOPHILS % (AUTO) 0.3 % (0.0-2.0); EOSINOPHILS % (AUTO) 0.9 % (0.0-6.0); HEMATOCRIT 22 % (39-51); HEMOGLOBIN 7.3 g/dL (13.5-17.5); LYMPHOCYTES # (AUTO) 1.6 K/uL (0.8-4.8); LYMPHOCYTES % (AUTO) 16.8 % (20.0-44.0); MEAN CORPUSCULAR HGB CONC 34 g/dl (31.0-36.0); MEAN CORPUSCULAR VOLUME 87 fL (80-96); MONOCYTES # (AUTO) 0.8 K/uL (0.1-1.30); MONOCYTES % (AUTO) 8.1 % (2.0-12.0); NEUTROPHILS % (AUTO) 73.9 % (43.0-81.0); PLATELET COUNT (AUTO) 194 K/uL (150-450); RED BLOOD CELL COUNT(AUTO) 2.48 MIL/uL (4.5-6.0); WHITE BLOOD COUNT (AUTO) 9.5 K/uL (4.3-11.0)
[2022-04-29 01:35] LABS: CALCIUM, SERUM 8.4 mg/dL (8.5-10.1); CARBON DIOXIDE 30 mmol/L (21-32); CHLORIDE 100 mmol/L (98-107); CREATININE 2.2 mg/dL (0.6-1.3); GLUCOSE 134 mg/dL (74-106); POTASSIUM 3.9 mmol/L (3.5-5.1); SODIUM SERUM 140 mmol/L (136-145); UREA NITROGEN, BLOOD 46 mg/dL (7-18)
[2022-04-29 01:49] LABS: ALANINE AMINOTRANSFERASE 15 U/L (12-78); ALBUMIN 3.5 g/dL (3.4-5.0); ALKALINE PHOSPHATASE 52 U/L (46-116); ASPARTATE AMINOTRANSFERASE 19 U/L (15-37); BILIRUBIN,DIRECT 0.1 mg/dL (0.0-0.2); BILIRUBIN,TOTAL 0.3 mg/dL (0.2-1.0); LIPASE 195 U/L (73-393); TOTAL PROTEIN, SERUM 6.8 g/dL (6.4-8.2)
[2022-04-29] MEDS ORDERED: LIDOCAINE 2% JEL UROJET 10 ML MM ONE (02:02)
--- NOTE | 2022-04-29 02:10 | NUR ---
URINE COLLECTED AND SENT TO LAB
--- NOTE | 2022-04-29 02:47 | NUR ---
PT TAKEN TO CT VIA OLINDA
[2022-04-29 03:17] LABS: BILIRUBIN,URINE NEGATIVE (NEGATIVE); COLOR,URINE YELLOW (YELLOW); LEUKOCYTE ESTERASE ,URINE NEGATIVE (NEGATIVE); NITRITE, URINE NEGATIVE (NEGATIVE); PH,URINE 5.5 (5.0-8.0); PROTEIN,URINE NEGATIVE (NEGATIVE); UGLUCOSE NEGATIVE (NEGATIVE); UROBILINOGEN,URINE 0.2 EU/dL (0.2)
[2022-04-29] MEDS ORDERED: ONDA4TAB11 PO (03:52)
[2022-04-29] MEDS ORDERED: HYDR-4209 PO (03:52)
--- NOTE | 2022-04-29 04:07 | NUR ---
CALLED PATIENT'S AND LEFT A MESSAGE FOR HER TO PICK HIM UP. IV removed. Catheter intact and site benign. Pressure and 4x4 applied to site. No bleeding noted. Written and verbal after care instructions given. Patient verbalizes understanding of instruction.
--- NOTE | 2022-04-29 05:31 | NUR ---
PATIENT ETA 30 MIN
[2022-04-29 06:00] VITALS: BP 116/67
--- NOTE | 2022-04-29 06:00 | NUR ---
Patient discharged to home in stable condition. Written and verbal after care instructions given. Patient verbalizes understanding of instruction. PT ambulatory with a steady gait
== END 2022-04-29 06:01 | disposition home or self-care (01) ==
LOC: ER 00:24
DX: R10.30 Lower abdominal pain, unspecified (principal); I10 Essential (primary) hypertension; I25.2 Old myocardial infarction; Z79.899 Other long term (current) drug therapy
CPT/HCPCS: 36415; 71045; 74174; 80048; 80076; 81003; 83605 ×2; 83690; 85025; 96361; 96374; 96375; 99285; J2270; J2405; J3490; J7030

== ENCOUNTER 2022-06-02 09:30 | Emergency (ER) | payer BC ==
[~2022-06-02] VITALS: Ht 165.1 cm; Wt 79.4 kg
[~2022-06-02 09:30] MED LIST changes: +HYDR-4209 PO; +ONDA4TAB11 PO
--- NOTE | 2022-06-02 09:44 | NUR ---
DR CANTU AT BEDSIDE FOR EVAL
--- NOTE | 2022-06-02 09:50 | NUR ---
PT UNABLE TO PROVIDE URINE AT THIS TIME; PER PT, HE JUST URINATED BEFORE COMING TO HOSPITAL. URINAL PROVIDED AT BEDSIDE.
[2022-06-02] MEDS ORDERED: NA PHOS,M-B/NA PHOS,DI-BA 1 EA ENEMA RC ONE ×2 (09:53→10:00)
[2022-06-02] MEDS ORDERED: GLYCERIN ADULT 1 SUPP.RECT RC PRN (10:00)
--- NOTE | 2022-06-02 10:02 | NUR ---
PHLEB TECH AT BEDSIDE FOR BLOOD DRAW
--- NOTE | 2022-06-02 10:05 | NUR ---
FLEET ENEMA ADMINISTERED
[2022-06-02 10:25] LABS: BASOPHILS # (AUTO) 0.1 K/uL (0.0-0.2); BASOPHILS % (AUTO) 0.7 % (0.0-2.0); EOSINOPHILS % (AUTO) 2.5 % (0.0-6.0); HEMATOCRIT 24 % (39-51); HEMOGLOBIN 7.5 g/dL (13.5-17.5); LYMPHOCYTES % (AUTO) 13.9 % (20.0-44.0); MEAN CORPUSCULAR HGB CONC 32 g/dl (31.0-36.0); MEAN CORPUSCULAR VOLUME 80 fL (80-96); MONOCYTES # (AUTO) 0.6 K/uL (0.1-1.30); MONOCYTES % (AUTO) 8.8 % (2.0-12.0); NEUTROPHILS # (AUTO) 5.3 K/uL (1.8-8.9); NEUTROPHILS % (AUTO) 74.1 % (43.0-81.0); PLATELET COUNT (AUTO) 246 K/uL (150-450); RED BLOOD CELL COUNT(AUTO) 2.97 MIL/uL (4.5-6.0); WHITE BLOOD COUNT (AUTO) 7.1 K/uL (4.3-11.0)
--- NOTE | 2022-06-02 10:30 | NUR ---
PT ASSISTED TO THE BATHROOM; PT FEELING THE URGE TO DEFACATE.
--- NOTE | 2022-06-02 10:40 | NUR ---
PER PT, ABLE TO PASS STOOL AND VERBALIZED RELIEF AFTER FLEET ENEMA ADMINISTRATION. DR. CANTU MADE AWARE.
[2022-06-02 12:18] LABS: ALANINE AMINOTRANSFERASE 13 U/L (12-78); ALKALINE PHOSPHATASE 65 U/L (46-116); ASPARTATE AMINOTRANSFERASE 11 U/L (15-37); BILIRUBIN,DIRECT 0.1 mg/dL (0.0-0.2); BILIRUBIN,TOTAL 0.4 mg/dL (0.2-1.0); CALCIUM, SERUM 8.3 mg/dL (8.5-10.1); CREATININE 1.3 mg/dL (0.6-1.3); GLUCOSE 97 mg/dL (74-106); TOTAL PROTEIN, SERUM 6.7 g/dL (6.4-8.2); UREA NITROGEN, BLOOD 22 mg/dL (7-18)
[2022-06-02 12:21] LABS: CARBON DIOXIDE 28 mmol/L (21-32); CHLORIDE 104 mmol/L (98-107); SODIUM SERUM 140 mmol/L (136-145)
--- NOTE | 2022-06-02 12:24 | NUR ---
CALLED LAB FOR CHEMISTRY FOLLOW-UP; PER COLIN, WILL RELEASE RESULTS NOW.
[2022-06-02 12:34] VITALS: BP 124/65
--- NOTE | 2022-06-02 12:34 | NUR ---
Patient discharged to home in stable condition. Written and verbal after care instructions given. Patient verbalizes understanding of instruction.
[2022-06-02 15:09] LABS: LIPASE 92 U/L (73-393)
== END 2022-06-02 12:35 | disposition home or self-care (01) ==
LOC: ER 09:40
DX: D64.9 Anemia, unspecified (principal); K59.00 Constipation, unspecified; I10 Essential (primary) hypertension; I25.2 Old myocardial infarction; Z98.890 Other specified postprocedural states; Z79.899 Other long term (current) drug therapy
CPT/HCPCS: 36415; 80048-TC; 80076-TC; 83690-TC; 85025-TC

== ENCOUNTER 2022-09-19 00:22 | Emergency (ER) | payer BC ==
[~2022-09-19] VITALS: Ht 165.1 cm; Wt 79.4 kg
[2022-09-19] MEDS ORDERED: MINERAL OIL 133 ML (PYXIS) 1 EA ENEMA RC ONE ×2 (02:00→02:08)
--- NOTE | 2022-09-19 02:16 | NUR ---
TO ER BED 7. BIBS C/O CONSTIPATION X 3 DAYS. PT IS ALERT AND ORIENTED. RR EVEN AND NONLABORED. CONNECTED TO MONITOR. VSS.
[2022-09-19] MEDS ORDERED: POLY119P2 PO (02:29)
[2022-09-19] MEDS ORDERED: DOCU-141 PO (02:29)
[2022-09-19 03:19] VITALS: BP 121/70
--- NOTE | 2022-09-19 03:19 | NUR ---
Patient discharged to home in stable condition. Written and verbal after care instructions given. Patient verbalizes understanding of instruction.
[2022-09-20] MEDS ORDERED: CETI-90 PO (13:46)
[2022-09-20] MEDS ORDERED: FLUT9.9S NS (13:46)
== END 2022-09-19 03:20 | disposition home or self-care (01) ==
LOC: ER 00:41
DX: K59.00 Constipation, unspecified (principal); I10 Essential (primary) hypertension; I25.2 Old myocardial infarction; Z79.899 Other long term (current) drug therapy

== ENCOUNTER 2022-09-20 11:29 | Emergency (ER) | payer BC ==
[~2022-09-20] VITALS: Ht 160 cm; Wt 81.6 kg
[~2022-09-20 11:29] MED LIST changes: +DOCU-141 PO; +POLY119P2 PO
[2022-09-20 11:47] VITALS: BP 100/54
[2022-09-20 12:14] LABS: BASOPHILS % (AUTO) 0.2 % (0.0-2.0); EOSINOPHILS % (AUTO) 0.1 % (0.0-6.0); HEMATOCRIT 27 % (39-51); HEMOGLOBIN 8.1 g/dL (13.5-17.5); LYMPHOCYTES # (AUTO) 0.8 K/uL (0.8-4.8); LYMPHOCYTES % (AUTO) 7.7 % (20.0-44.0); MEAN CORPUSCULAR HGB CONC 31 g/dl (31.0-36.0); MEAN CORPUSCULAR VOLUME 71 fL (80-96); MONOCYTES % (AUTO) 9.1 % (2.0-12.0); NEUTROPHILS # (AUTO) 8.8 K/uL (1.8-8.9); NEUTROPHILS % (AUTO) 82.9 % (43.0-81.0); PLATELET COUNT (AUTO) 197 K/uL (150-450); RED BLOOD CELL COUNT(AUTO) 3.76 MIL/uL (4.5-6.0); WHITE BLOOD COUNT (AUTO) 10.6 K/uL (4.3-11.0)
[2022-09-20 12:48] LABS: ALANINE AMINOTRANSFERASE 9 U/L (12-78); ALBUMIN 3.3 g/dL (3.4-5.0); ALKALINE PHOSPHATASE 72 U/L (46-116); ASPARTATE AMINOTRANSFERASE 15 U/L (15-37); BILIRUBIN,DIRECT 0.4 mg/dL (0.0-0.2); CALCIUM, SERUM 8.6 mg/dL (8.5-10.1); CHLORIDE 101 mmol/L (98-107); CREATININE 1.5 mg/dL (0.6-1.3); LIPASE 62 U/L (73-393); POTASSIUM 3.5 mmol/L (3.5-5.1); SODIUM SERUM 137 mmol/L (136-145); TOTAL PROTEIN, SERUM 7.5 g/dL (6.4-8.2)
[2022-09-20 12:54] LABS: CARBON DIOXIDE 27 mmol/L (21-32); GLUCOSE 116 mg/dL (74-106); UREA NITROGEN, BLOOD 21 mg/dL (7-18)
[2022-09-20 13:13] LABS: LYMPHOCYTES % (MANUAL) 6 % (16-48); MONOCYTES % (MANUAL) 3 % (0-11.0); NEUTROPHILS % (MANUAL) 91 (42-76)
[2022-09-20] MEDS ORDERED: cetrizine 10 MG TABLET PO ONE (13:30)
[2022-09-20] MEDS ORDERED: CETI-90 PO (13:46)
[2022-09-20] MEDS ORDERED: FLUT9.9S NS (13:46)
[2022-09-20] MEDS ORDERED: cetrizine 10 MG TABLET ONE (13:50)
--- NOTE | 2022-09-20 13:58 | NUR ---
Patient discharged to home in stable condition. Written and verbal after care instructions given. Patient verbalizes understanding of instruction.
== END 2022-09-20 13:57 | disposition home or self-care (01) ==
LOC: ER 11:32
DX: R09.81 Nasal congestion (principal); I10 Essential (primary) hypertension
CPT/HCPCS: 36415; 71045-TC; 80048-TC; 80076-TC; 83690-TC; 85025-TC

== ENCOUNTER 2022-10-18 22:15 | Emergency (ER) | payer BC ==
[~2022-10-18] VITALS: Ht 165.1 cm; Wt 79.4 kg
[~2022-10-18 22:15] MED LIST changes: +CETI-90 PO; +FLUT9.9S NS
--- NOTE | 2022-10-18 22:40 | NUR ---
BIBS C/O CONSTIPATION X 2 DAY. PATIENT IS AAOX4. ABLE TO MAKE NEEDS KNOWN. PLACED COMFORTABLY IN BED.VITALS CHECKED.
--- NOTE | 2022-10-18 23:21 | NUR ---
CAME BACK FROM CT SCAN
--- NOTE | 2022-10-19 02:10 | NUR ---
Patient discharged to home in stable condition. Written and verbal after care instructions given. Patient verbalizes understanding of instruction.
[2022-10-19 03:05] VITALS: BP 112/60
== END 2022-10-19 03:05 | disposition home or self-care (01) ==
LOC: ER 22:17
DX: K59.00 Constipation, unspecified (principal); I10 Essential (primary) hypertension; Z79.899 Other long term (current) drug therapy

== ENCOUNTER 2022-10-19 07:57 | Emergency (ER) | payer BC ==
[~2022-10-19] VITALS: Ht 165.1 cm; Wt 79.4 kg
[2022-10-19 08:43] LABS: ALANINE AMINOTRANSFERASE 11 U/L (12-78); ALBUMIN 3.2 g/dL (3.4-5.0); ALKALINE PHOSPHATASE 75 U/L (46-116); ASPARTATE AMINOTRANSFERASE 20 U/L (15-37); BILIRUBIN,DIRECT 0.2 mg/dL (0.0-0.2); BILIRUBIN,TOTAL 0.5 mg/dL (0.2-1.0); CALCIUM, SERUM 8.2 mg/dL (8.5-10.1); CARBON DIOXIDE 28 mmol/L (21-32); CHLORIDE 105 mmol/L (98-107); CREATININE 1.4 mg/dL (0.6-1.3); GLUCOSE 108 mg/dL (74-106); LIPASE 104 U/L (73-393); POTASSIUM 4.2 mmol/L (3.5-5.1); SODIUM SERUM 139 mmol/L (136-145); TOTAL PROTEIN, SERUM 7.3 g/dL (6.4-8.2); UREA NITROGEN, BLOOD 23 mg/dL (7-18)
[2022-10-19 08:56] LABS: BASOPHILS % (AUTO) 0.5 % (0.0-2.0); EOSINOPHILS % (AUTO) 3.9 % (0.0-6.0); HEMATOCRIT 27 % (39-51); LYMPHOCYTES % (AUTO) 13.9 % (20.0-44.0); MEAN CORPUSCULAR HGB CONC 30 g/dl (31.0-36.0); MEAN CORPUSCULAR VOLUME 72 fL (80-96); MONOCYTES # (AUTO) 0.6 K/uL (0.1-1.30); MONOCYTES % (AUTO) 7.9 % (2.0-12.0); NEUTROPHILS # (AUTO) 5.4 K/uL (1.8-8.9); NEUTROPHILS % (AUTO) 73.8 % (43.0-81.0); PLATELET COUNT (AUTO) 223 K/uL (150-450); RED BLOOD CELL COUNT(AUTO) 3.69 MIL/uL (4.5-6.0); WHITE BLOOD COUNT (AUTO) 7.4 K/uL (4.3-11.0)
--- NOTE | 2022-10-19 09:27 | NUR ---
Patient discharged to home in stable condition. Written and verbal after care instructions given. Patient verbalizes understanding of instruction.
[2022-10-19 10:17] VITALS: BP 131/71
== END 2022-10-19 10:18 | disposition home or self-care (01) ==
LOC: ER 09:04
DX: K59.00 Constipation, unspecified (principal); I10 Essential (primary) hypertension; I25.2 Old myocardial infarction; Z79.899 Other long term (current) drug therapy
CPT/HCPCS: 36415; 80048-TC; 80076-TC; 83690-TC; 85025-TC

== ENCOUNTER 2022-11-20 23:15 | Emergency (ER) | payer BC ==
[~2022-11-20] VITALS: Ht 165.1 cm; Wt 81.6 kg
[2022-11-21] MEDS ORDERED: ALBUTEROL FS 2.5 MG/0.5 ML VIAL.NEB NEB ONE (00:30)
[2022-11-21] MEDS ORDERED: ALBUTEROL FS 2.5 MG/0.5 ML VIAL.NEB ONE (00:34)
--- NOTE | 2022-11-21 02:16 | NUR ---
Patient discharged to home in stable condition. Written and verbal after care instructions given. Patient verbalizes understanding of instruction.
[2022-11-21 02:18] VITALS: BP 126/68
== END 2022-11-21 02:22 | disposition home or self-care (01) ==
LOC: ER 23:17
DX: R09.89 Other specified symptoms and signs involving the circulatory and respiratory systems (principal); Z20.822 Contact with and (suspected) exposure to COVID-19; I25.2 Old myocardial infarction; Z95.1 Presence of aortocoronary bypass graft; Z95.5 Presence of coronary angioplasty implant and graft; Z79.01 Long term (current) use of anticoagulants; Z79.82 Long term (current) use of aspirin; Z79.899 Other long term (current) drug therapy
CPT/HCPCS: 71045-TC; C9803

== ENCOUNTER 2022-12-18 18:09 | Emergency (ER) | payer BC ==
[~2022-12-18] VITALS: Ht 165.1 cm; Wt 79.4 kg
[2022-12-18] MEDS ORDERED: IV NS 0.9% 500 ML BAG IV ONE (18:30)
[2022-12-18] MEDS ORDERED: LACTULOSE 10 G/15 ML UDC (PYXIS) PO ONE (18:30)
--- NOTE | 2022-12-18 18:30 | NUR ---
ABDOMINAL PAIN, CONSTIPATION X 2 DAYS
[2022-12-18] MEDS ORDERED: LACTULOSE 10 G/15 ML UDC (PYXIS) ONE ×2 (18:38→18:53)
--- NOTE | 2022-12-18 18:45 | NUR ---
AT BEDSIDE FOR EVAL
--- NOTE | 2022-12-18 18:55 | NUR ---
established iv access. 20g left ac. blood drawn and sent to lab
[2022-12-18 20:06] LABS: ALANINE AMINOTRANSFERASE 23 U/L (12-78); ALBUMIN 3.7 g/dL (3.4-5.0); ALKALINE PHOSPHATASE 104 U/L (46-116); ASPARTATE AMINOTRANSFERASE 31 U/L (15-37); BILIRUBIN,DIRECT 0.6 mg/dL (0.0-0.2); CALCIUM, SERUM 8.5 mg/dL (8.5-10.1); CARBON DIOXIDE 31 mmol/L (21-32); CHLORIDE 98 mmol/L (98-107); CREATININE 1.9 mg/dL (0.6-1.3); GLUCOSE 101 mg/dL (74-106); LIPASE 117 U/L (73-393); POTASSIUM 3.8 mmol/L (3.5-5.1); SODIUM SERUM 138 mmol/L (136-145); TOTAL PROTEIN, SERUM 8.1 g/dL (6.4-8.2); UREA NITROGEN, BLOOD 34 mg/dL (7-18)
[2022-12-18 20:10] LABS: BASOPHILS % (AUTO) 0.3 % (0.0-2.0); EOSINOPHILS % (AUTO) 1.1 % (0.0-6.0); HEMATOCRIT 31 % (39-51); HEMOGLOBIN 8.9 g/dL (13.5-17.5); LYMPHOCYTES # (AUTO) 0.9 K/uL (0.8-4.8); LYMPHOCYTES % (AUTO) 10.8 % (20.0-44.0); MEAN CORPUSCULAR HGB CONC 29 g/dl (31.0-36.0); MEAN CORPUSCULAR VOLUME 70 fL (80-96); MONOCYTES # (AUTO) 0.7 K/uL (0.1-1.30); MONOCYTES % (AUTO) 8.5 % (2.0-12.0); NEUTROPHILS # (AUTO) 6.5 K/uL (1.8-8.9); NEUTROPHILS % (AUTO) 79.3 % (43.0-81.0); PLATELET COUNT (AUTO) 191 K/uL (150-450); RED BLOOD CELL COUNT(AUTO) 4.46 MIL/uL (4.5-6.0); WHITE BLOOD COUNT (AUTO) 8.2 K/uL (4.3-11.0)
--- NOTE | 2022-12-18 20:33 | NUR ---
STILL NOT ABLE TO PROVIDE URINE AT THIS TIME
--- NOTE | 2022-12-18 21:13 | NUR ---
URINE SAMPLE SENT TO LAB
[2022-12-18] MEDS ORDERED: DOCU-141 PO (21:14)
--- NOTE | 2022-12-18 21:36 | NUR ---
CALLED CONTACT NUMBER OF FAMILY, NO ANSWER. LEFT A MESSAGE
--- NOTE | 2022-12-18 21:48 | NUR ---
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
[2022-12-18 21:55] LABS: BILIRUBIN,URINE NEGATIVE (NEGATIVE); COLOR,URINE YELLOW (YELLOW); LEUKOCYTE ESTERASE ,URINE NEGATIVE (NEGATIVE); NITRITE, URINE NEGATIVE (NEGATIVE); PROTEIN,URINE TRACE mg/dl (NEGATIVE); UGLUCOSE NEGATIVE (NEGATIVE)
[2022-12-18 22:09] LABS: BACTERIA,URINE None seen /HPF (None Seen); MUCUS,URINE Few /LPF (None Seen); RBC,URINE 0-2 /HPF (0-2); WBC,URINE 0-2 /HPF (0-3)
--- NOTE | 2022-12-18 22:15 | NUR ---
Patient discharged to home in stable condition. Written and verbal after care instructions given. Patient verbalizes understanding of instruction.
[2022-12-18 22:16] VITALS: BP 133/71
[2022-12-19 04:18] LABS: BAND % (MANUAL) 3 % (0.0-5.0); BASOPHILS % (MANUAL) 0 % (0.0-2.0); EOSINOPHILS % (MANUAL) 1 % (0-4); LYMPHOCYTES % (MANUAL) 9 % (16-48); MONOCYTES % (MANUAL) 6 % (0-11.0); NEUTROPHILS % (MANUAL) 81 (42-76)
[2022-12-19] MEDS ORDERED: AMIO200T5 PO (14:41)
[2022-12-19] MEDS ORDERED: LATA2.5D15 EACHEYE (14:41)
[2022-12-22] MEDS ORDERED: RIVA15TA PO (08:55)
[2022-12-22] MEDS ORDERED: METO25TA4 PO (08:55)
[2022-12-22] MEDS ORDERED: LEVO25TA7 PO (08:55)
[2022-12-22] MEDS ORDERED: CLOP75TA15 PO (08:55)
[2022-12-22] MEDS ORDERED: FERR325T23 PO (08:55)
== END 2022-12-18 22:16 | disposition home or self-care (01) ==
LOC: ER 18:24
DX: R10.10 Upper abdominal pain, unspecified (principal); I10 Essential (primary) hypertension; Z95.1 Presence of aortocoronary bypass graft; Z79.899 Other long term (current) drug therapy
CPT/HCPCS: 99285; 74176; 96360; 71045; 85025; 80048; 83690; 80076; 81001; 36415; 85007; J7040

== ENCOUNTER 2022-12-19 13:28 | Inpatient (IN) | payer BC ==
[~2022-12-19] VITALS: Ht 172.7 cm; Wt 78.6 kg
--- NOTE | 2022-12-19 13:45 | NUR ---
BIB C/O ABDOMINAL PAIN/CONSTIPATION X 2 DAYS, PAIN WORST TODAY. PT AMBULATORY WITH STEADY GAIT. VSS. AWAITING MD ORDERS.
--- NOTE | 2022-12-19 13:45 | NUR ---
BIB C/O ABDOMINAL PAIN/CONSTIPATION X 2 DAYS, PAIN WORST TODAY. SEEN IN ED YESTERDAY, PER DAUGHTER ALSO BEEN VOMITING LAST NIGHT
[2022-12-19] MEDS ORDERED: MORPHINE SULFATE INJ 4 MG/ML DISP.SYRIN ONE (13:47)
[2022-12-19] MEDS ORDERED: MORPHINE SULFATE INJ 2 MG/ML DISP.SYRIN IV ONE (14:00)
[2022-12-19] MEDS ORDERED: ONDANSETRON HCL/PF 4 MG/2 ML VIAL IV ONE ×2 (14:00→23:30)
[2022-12-19] MEDS ORDERED: IV NS 0.9% 500 ML BAG IV ONE (14:00)
--- NOTE | 2022-12-19 14:10 | NUR ---
MOVE SHEET SUBMITTED.
--- NOTE | 2022-12-19 14:13 | NUR ---
established iv line 20 g right ac
--- NOTE | 2022-12-19 14:14 | NUR ---
blood sample obtained
--- NOTE | 2022-12-19 14:14 | NUR ---
covid swab taken
[2022-12-19 14:33] LABS: BASOPHILS % (AUTO) 0.3 % (0.0-2.0); HEMATOCRIT 28 % (39-51); HEMOGLOBIN 8.1 g/dL (13.5-17.5); LYMPHOCYTES # (AUTO) 0.5 K/uL (0.8-4.8); LYMPHOCYTES % (AUTO) 6.9 % (20.0-44.0); MEAN CORPUSCULAR HGB CONC 29 g/dl (31.0-36.0); MEAN CORPUSCULAR VOLUME 69 fL (80-96); MONOCYTES # (AUTO) 0.5 K/uL (0.1-1.30); MONOCYTES % (AUTO) 7.3 % (2.0-12.0); NEUTROPHILS # (AUTO) 6.2 K/uL (1.8-8.9); NEUTROPHILS % (AUTO) 84.5 % (43.0-81.0); PLATELET COUNT (AUTO) 184 K/uL (150-450); RED BLOOD CELL COUNT(AUTO) 4.04 MIL/uL (4.5-6.0); WHITE BLOOD COUNT (AUTO) 7.4 K/uL (4.3-11.0)
[2022-12-19] MEDS ORDERED: LATA2.5D15 EACHEYE (14:41)
[2022-12-19] MEDS ORDERED: AMIO200T5 PO (14:41)
[2022-12-19] MEDS ORDERED: MINERAL OIL 133 ML (PYXIS) 1 EA ENEMA RC ONE (15:00)
[2022-12-19] MEDS ORDERED: NA PHOS,M-B/NA PHOS,DI-BA 1 EA ENEMA RC ONE (15:28)
[2022-12-19] MEDS ORDERED: IV NS 0.9% 1,000 ML IV ONE (16:00)
[2022-12-19 16:05] LABS: CALCIUM, SERUM 7.9 mg/dL (8.5-10.1); CARBON DIOXIDE 31 mmol/L (21-32); CHLORIDE 101 mmol/L (98-107); CREATININE 2.1 mg/dL (0.6-1.3); GLUCOSE 134 mg/dL (74-106); POTASSIUM 3.7 mmol/L (3.5-5.1); SODIUM SERUM 139 mmol/L (136-145); UREA NITROGEN, BLOOD 32 mg/dL (7-18)
[2022-12-19 16:11] LABS: ALANINE AMINOTRANSFERASE 17 U/L (12-78); ALBUMIN 3.2 g/dL (3.4-5.0); ALKALINE PHOSPHATASE 90 U/L (46-116); ASPARTATE AMINOTRANSFERASE 23 U/L (15-37); BILIRUBIN,DIRECT 0.6 mg/dL (0.0-0.2); LIPASE 92 U/L (73-393)
--- NOTE | 2022-12-19 16:30 | NUR ---
KARINA REGAL [phone] FAXED CLINICALS TO [phone]
--- NOTE | 2022-12-19 16:36 | NUR ---
urine sample obtained
--- NOTE | 2022-12-19 16:42 | NUR ---
TROPONIN 1027.
--- NOTE | 2022-12-19 17:00 | NUR ---
DR. QUINTERO SPEAKING WITH DR. ZARCO.
--- NOTE | 2022-12-19 17:19 | NUR ---
[facility] [phone].
[2022-12-19 17:22] LABS: BILIRUBIN,URINE 1+ (NEGATIVE); COLOR,URINE YELLOW (YELLOW); LEUKOCYTE ESTERASE ,URINE NEGATIVE (NEGATIVE); NITRITE, URINE NEGATIVE (NEGATIVE); PROTEIN,URINE 1+ mg/dl (NEGATIVE); UGLUCOSE NEGATIVE (NEGATIVE)
--- NOTE | 2022-12-19 17:46 | NUR ---
FAXED COVID RESULT TO [phone]
[2022-12-19 17:54] LABS: EOSINOPHILS % (MANUAL) 1 % (0-4); LYMPHOCYTES % (MANUAL) 5 % (16-48); MONOCYTES % (MANUAL) 3 % (0-11.0); NEUTROPHILS % (MANUAL) 91 (42-76)
[2022-12-19 18:04] LABS: SQUAMOUS EPITHELIAL CELL,UR Few /HPF (None Seen)
[2022-12-19 18:05] LABS: BACTERIA,URINE Moderate /HPF (None Seen)
--- NOTE | 2022-12-19 20:14 | NUR ---
PT ACCEPTED TO [facility] [phone] CALL FOR REPORT AUTH ALS [id number] ACCEPTING PHYSICIAN DR. OLIVAREZ
--- NOTE | 2022-12-19 20:35 | NUR ---
LATRICE PRIEST CM WILL SET UP TRANSPORTATION FOR TRANSFER TO [facility] AND WILL CALL US BACK
--- NOTE | 2022-12-19 21:54 | NUR ---
SPOKE TO LATRICE THE [place] . STILL IUNABLE TO ARRANGE ALS TRANSPORTATION. INFORMED LATRICE ABOUT ELEVATED TROPONING AND PREVENT DELAY OF CARE
--- NOTE | 2022-12-19 22:00 | NUR ---
ELIZABETH SAL CM GAVE AUTH OVER THE PHONE TO KEEP THE PATIENT HERE
--- NOTE | 2022-12-19 22:10 | NUR ---
PAGED DR ALLEN
--- NOTE | 2022-12-19 22:45 | NUR ---
PT VOMITED, DR ZARCO NOTIFIED, ORDERED ZOFRAN 4 MG IV
[2022-12-19] MEDS ORDERED: ONDANSETRON HCL/PF 4 MG/2 ML VIAL ONE (23:14)
--- NOTE | 2022-12-19 23:47 | NUR ---
RM 326
[2022-12-20 00:40] VITALS: BP 110/63
--- NOTE | 2022-12-20 00:45 | NUR ---
REMODELERTICKET CLERK NOTES RECEIVED PATIENT FROM ER WITH OLINDA AT 0045 .PATIENT IS A/O TIMES 2. ABLE TO MAKE NEEDS KNOWN. NO PAIN NOTED . NO SOB NOTED. NO DISTRESS NOTED. ON 02 INHALATION VIA NASAL CANNULA. 02 SAT NOTED 93 %. NO VOMITING NOTED. ON TELE MONITOR READING V-PACING 85. VITAL SIGNS NOTED LC=494/63, P=86, RR=20, T=98.0, PATIENT HAD 2 BOWEL MOVEMENT IN ER AFTER ENEMA. SKIN CHECKS DONE. RIGHT AND LEFT UPPER EXTREMITIES NOTED WITH BRUISES AND SCABS. RIGHT GROIN BRUISE. BACK SCRATCHES. AND BUTTOCK REDNESS. PHOTOES TAKEN AND IN THE CHART. ALL THE BELONGINGS ACCOUNTED AND SIGNED FOR. ALL SAFETY MEASURES IN PLACE. BED LOCKED IN THE LOWEST POSITION. CALL LIGHT AND TABLE IN EASY REACH. SIDE RAILS UP TIMES 2. BED ALARM ON. CALL LIGHT AND TABLE IN EASY REACH. ASPIRATION PRECAUTION. WILL CONTINUE TO MONITOR CLOSELY.
--- NOTE | 2022-12-20 00:55 | NUR ---
PATIENT TRANSFERRED TO [facility] VIA ACLS, VS WNL. REPORT GIVEN TO NITHIN DRUMMOND FOR MAXIMILIAN
[2022-12-20] MEDS ORDERED: HYDROCODONE/APAP 5/325MG TABLET PO PRN (01:00)
[2022-12-20] MEDS ORDERED: ONDANSETRON HCL/PF 4 MG/2 ML VIAL IV PRN (01:00)
[2022-12-20] MEDS ORDERED: ACETAMINOPHEN 325 MG TABLET PO PRN (01:00)
[2022-12-20] MEDS ORDERED: ZOLPIDEM TARTRATE 5 MG TABLET PO PRN (01:00)
[2022-12-20 04:00] VITALS: BP 122/66
[2022-12-20 06:16] LABS: BASOPHILS % (AUTO) 0.3 % (0.0-2.0); EOSINOPHILS % (AUTO) 0.5 % (0.0-6.0); HEMATOCRIT 28 % (39-51); HEMOGLOBIN 7.9 g/dL (13.5-17.5); LYMPHOCYTES # (AUTO) 0.7 K/uL (0.8-4.8); LYMPHOCYTES % (AUTO) 6.6 % (20.0-44.0); MEAN CORPUSCULAR HGB CONC 28 g/dl (31.0-36.0); MEAN CORPUSCULAR VOLUME 71 fL (80-96); MONOCYTES # (AUTO) 0.8 K/uL (0.1-1.30); NEUTROPHILS # (AUTO) 8.6 K/uL (1.8-8.9); NEUTROPHILS % (AUTO) 84.6 % (43.0-81.0); PLATELET COUNT (AUTO) 174 K/uL (150-450); RED BLOOD CELL COUNT(AUTO) 3.96 MIL/uL (4.5-6.0); WHITE BLOOD COUNT (AUTO) 10.1 K/uL (4.3-11.0)
--- NOTE | 2022-12-20 06:46 | NUR ---
ASPHALT LAYER CLOSING NOTES PATIENT AWAKE IN BED. PATIENT IS A/O TIMES 2. ABLE TO MAKE NEEDS KNOWN. NO PAIN NOTED . NO SOB NOTED. NO DISTRESS NOTED. ON 02 INHALATION VIA NASAL CANNULA. NO VOMITING NOTED. ON TELE MONITOR READING V-PACING 82. ALL SAFETY MEASURES IN PLACE. BED LOCKED IN THE LOWEST POSITION. CALL LIGHT AND TABLE IN EASY REACH. SIDE RAILS UP TIMES 2. BED ALARM ON. CALL LIGHT AND TABLE IN EASY REACH. ASPIRATION PRECAUTION. WILL ENDORSE FOR MAXIMILIAN.
[2022-12-20 07:00] VITALS: BP 91/46
[2022-12-20 07:13] LABS: ALANINE AMINOTRANSFERASE 16 U/L (12-78); ALBUMIN 2.9 g/dL (3.4-5.0); ALKALINE PHOSPHATASE 78 U/L (46-116); ASPARTATE AMINOTRANSFERASE 21 U/L (15-37); BILIRUBIN,TOTAL 0.9 mg/dL (0.2-1.0); CARBON DIOXIDE 31 mmol/L (21-32); CHLORIDE 105 mmol/L (98-107); CREATININE 1.9 mg/dL (0.6-1.3); GLUCOSE 107 mg/dL (74-106); POTASSIUM 3.4 mmol/L (3.5-5.1); SODIUM SERUM 143 mmol/L (136-145); TOTAL PROTEIN, SERUM 6.8 g/dL (6.4-8.2); UREA NITROGEN, BLOOD 31 mg/dL (7-18)
[2022-12-20 07:29] LABS: CHOLESTEROL 69 mg/dL (<200); HDL CHOLESTEROL 42 mg/dL (40-60); LDL 25 mg/dL (0-99); THYROID STIMULATING HORMONE 4.412 uIU/mL (0.358-3.74); TRIGLYCERIDES 33 mg/dL (30-150)
[2022-12-20] MEDS ORDERED: LEVOTHYROXINE SODIUM 25 MCG TABLET PO SCH (07:30)
--- NOTE | 2022-12-20 07:50 | NUR ---
RN OPENING NOTE PATIENT AWAKE IN BED RESTING, A/O X 2. NO S/S OF PAIN NOTED AT THIS TIME. ON 2L OXYGEN VIA NC, BREATHING EVEN UNLABORED, NO DISTRESS OR SHORTNESS OF BREATH NOTED AT THIS TIME. IV ACCESS RAC #20G, INTACT PATENT AND FLUSHING WELL. PATIENT WITH EXTERNAL CATHOLIC PRIEST WITH CURRENT READING OF V-PACING AND HR OF 80'S, NO CARDIAC DISTRESS NOTED. FALL AND SAFETY MEASURES IN PLACE, BED ALARM ON, BED IN LOW AND LOCK POSITION, CALL LIGHT AND TABLE WITHIN EASY REACH, SIDE RAILS UP X2. WILL CONTINUE TO MONITOR.
[2022-12-20] MEDS: ATORVASTATIN 40 MG TABLET PO SCH (08:26)
[2022-12-20] MEDS: AMIODARONE HCL 200 MG TABLET PO SCH (08:27)
[2022-12-20] MEDS: PANTOPRAZOLE 40 MG TABLET.DR PO SCH (08:27)
[2022-12-20] MEDS ORDERED: ASPIRIN 81 MG TAB.CHEW PO SCH (09:00)
[2022-12-20] MEDS ORDERED: METOPROLOL TARTRATE 25 MG TABLET PO SCH (09:00)
[2022-12-20] MEDS ORDERED: FUROSEMIDE 40 MG/4 ML VIAL IV SCH (09:00)
[2022-12-20] MEDS: diphenhydrAMINE HCL 25 MG CAPSULE PO PRN ×2 (09:46→21:58)
[2022-12-20] MEDS ORDERED: POLYETHYLENE GLYCOL 3350 17 GM POWD.PACK PO PRN (10:00)
[2022-12-20] MEDS ORDERED: LACTULOSE 10 G/15 ML UDC (PYXIS) PO ONE (10:00)
[2022-12-20] MEDS ORDERED: POTASSIUM CHLORIDE 20 MEQ TAB.PRT.SR PO ONE (10:00)
--- NOTE | 2022-12-20 10:00 | NUR ---
RN NOTE PATIENT WAS COMPLAINING OF ITCHINESS ALL OVER HIS BODY, DOCTOR WAS INFORMED AT BEDSIDE, ORDER FOR Q6HRS BENADRYL PRN WAS PLACED, WILL CONTINUE TO MONITOR.
[2022-12-20 10:03] LABS: EOSINOPHILS % (MANUAL) 2 % (0-4); LYMPHOCYTES % (MANUAL) 6 % (16-48); MONOCYTES % (MANUAL) 5 % (0-11.0); NEUTROPHILS % (MANUAL) 87 (42-76)
[2022-12-20 16:00] VITALS: BP 96/56
--- NOTE | 2022-12-20 18:39 | NUR ---
RN CLOSING NOTE PATIENT AWAKE IN BED RESTING, A/O X 2, CONFUSED, TRYING TO GET OUT OF BED. NO S/S OF PAIN NOTED AT THIS TIME. ON 3L OXYGEN VIA NC, BREATHING EVEN UNLABORED, NO DISTRESS OR SHORTNESS OF BREATH NOTED AT THIS TIME. IV ACCESS RAC #20G, INTACT PATENT AND FLUSHING WELL. PATIENT WITH EXTERNAL BOTANY TEACHER WITH CURRENT READING OF V-PACING AND HR OF 89, NO CARDIAC DISTRESS NOTED. SCHEDULE MEDICATIONS ADMINISTERED. SKIN CARE PROVIDED. PATIENT WAS TURNED AND REPOSITIONED PER PROTOCOL. FALL AND SAFETY MEASURES IN PLACE, BED ALARM ON, BED IN LOW AND LOCK POSITION, CALL LIGHT AND TABLE WITHIN EASY REACH, SIDE RAILS UP X2. ALL NEEDS ATTENDED AND ANTICIPATED. WILL ENDORSE TO PLATE STACKER.
--- NOTE | 2022-12-20 19:35 | NUR ---
TELE INSURANCE COLLECTOR INITIAL NOTES Received report from am nurse and seen patient in bed resting with eyes closed but easily arouse to touch and to his name, Re- oriented where he at and how to use the call light system. He understood well but noticed some confusion. Kept him warm and comfortable at all times. He also on tele V-Pacing per monitor. Bed in low and lock in position with side rails x2 up and bed alarm set for pt safety. will continue monitoring. place call light at reach.
[2022-12-20 20:00] VITALS: BP 98/60
[2022-12-20 21:25] VITALS: BP 96/57
[2022-12-20] MEDS: LATANOPROST EYE DROP 0.005% 2.5 ML BOTTLE EACHEYE SCH (21:58)
[2022-12-20] MEDS: TAMSULOSIN 0.4 MG CAP.SR.24H PO SCH (21:58)
[2022-12-21] VITALS (11 sets, daily range): BP systolic 93–107; BP diastolic 51–69
[2022-12-21] MEDS: METOPROLOL SUCCINATE 25 MG TAB.SR.24H PO SCH (06:00)
[2022-12-21 06:43] LABS: ALANINE AMINOTRANSFERASE 20 U/L (12-78); ALBUMIN 2.9 g/dL (3.4-5.0); ALKALINE PHOSPHATASE 97 U/L (46-116); ASPARTATE AMINOTRANSFERASE 25 U/L (15-37); BILIRUBIN,TOTAL 1.1 mg/dL (0.2-1.0); CALCIUM, SERUM 8.1 mg/dL (8.5-10.1); CARBON DIOXIDE 28 mmol/L (21-32); CHLORIDE 102 mmol/L (98-107); CREATININE 2.4 mg/dL (0.6-1.3); GLUCOSE 100 mg/dL (74-106); MAGNESIUM 2.8 mg/dL (1.8-2.4); PHOSPHORUS 7.1 mg/dL (2.5-4.9); POTASSIUM 4.6 mmol/L (3.5-5.1); SODIUM SERUM 138 mmol/L (136-145); TOTAL PROTEIN, SERUM 6.7 g/dL (6.4-8.2); UREA NITROGEN, BLOOD 35 mg/dL (7-18)
[2022-12-21 07:02] LABS: BASOPHILS % (AUTO) 0.4 % (0.0-2.0); EOSINOPHILS % (AUTO) 1.8 % (0.0-6.0); HEMATOCRIT 27 % (39-51); HEMOGLOBIN 7.6 g/dL (13.5-17.5); LYMPHOCYTES # (AUTO) 1.1 K/uL (0.8-4.8); LYMPHOCYTES % (AUTO) 14.1 % (20.0-44.0); MEAN CORPUSCULAR HGB CONC 28 g/dl (31.0-36.0); MEAN CORPUSCULAR VOLUME 71 fL (80-96); MONOCYTES % (AUTO) 12.4 % (2.0-12.0); NEUTROPHILS # (AUTO) 5.7 K/uL (1.8-8.9); NEUTROPHILS % (AUTO) 71.3 % (43.0-81.0); PLATELET COUNT (AUTO) 189 K/uL (150-450); RED BLOOD CELL COUNT(AUTO) 3.83 MIL/uL (4.5-6.0)
[2022-12-21] MEDS: PANTOPRAZOLE 40 MG TABLET.DR PO SCH (07:26)
[2022-12-21] MEDS: LEVOTHYROXINE SODIUM 25 MCG TABLET PO SCH (07:26)
--- NOTE | 2022-12-21 07:29 | NUR ---
PLASTIC SURGERY ASSISTANT OPENING NOTES PATIENT RECEIVED AWAKE IN BED IN NO ACUTE SIGNS OF DISTRESS. A/O X 3. ABLE TO MAKE NEEDS KNOWN, DENIES PAIN OR ANY DISCOMFORTS AT THIS TIME. ON OXYGEN VIA N/V @ 2LPM, TOLERATING WELL, BREATHING EVEN UNLABORED. IV ACCESS ON RAC #20G, SL, INTACT PATENT AND FLUSHING WELL. ON EXTERNAL CLIENT EXPERIENCE CONSULTANT WITH CURRENT READING OF V-PACING, HR ON THE 80'S, NO C/O CARDIAC DISTRESS VOICED. FALL AND SAFETY MEASURES IN PLACE: BED ALARM ON, BED IN LOW AND LOCK POSITION, SIDE RAILS UP X2, CALL LIGHT AND TRAY TABLE WITHIN EASY REACH OF PT. WILL CONTINUE TO MONITOR PT ACCORDINGLY.
--- NOTE | 2022-12-21 07:30 | NUR ---
tele accounting intern closing notes Pt resting comfortably in bed but arousable to touch. Not in any acute distress or any discomfort. Stable throughout the night , on Tele V-pacing heart rate 88 per monitor . all due meds given and all needs met. Kept him warm and comfortable at all times. bed in low and lock in position with side rails x2 up. place call light at reach. Endorse to am nurse for continuity of care.
[2022-12-21] MEDS: ATORVASTATIN 40 MG TABLET PO SCH (08:22)
[2022-12-21] MEDS: AMIODARONE HCL 200 MG TABLET PO SCH (08:22)
[2022-12-21] MEDS: CLOPIDOGREL BISULFATE 75 MG TABLET PO SCH (08:22)
[2022-12-21] MEDS ORDERED: LACTULOSE 10 G/15 ML UDC (PYXIS) PO ONE (09:00)
[2022-12-21] MEDS ORDERED: CLOPIDOGREL BISULFATE 75 MG TABLET PO SCH (09:00)
[2022-12-21] MEDS ORDERED: FUROSEMIDE 40 MG/4 ML VIAL IV SCH (09:00)
--- NOTE | 2022-12-21 09:10 | NUR ---
RN NOTES PT SEEN BY DR ALLEN WITH ORDER TO DO BLOOD TRANSFUSION OF PRBC X1 TODAY DUE TO HGB TRENDING DOWN ( TODAY 7.6), GIVE LACTULOSE 20 GM/30ML X1 AND COLLECT STOOL FOR OB. ASKED DR ALLEN IF IT'S OK TO GIVE XARELTO THIS AFTERNOON AND HE SAID "YES". WILL CARRY OUT ORDERS.
--- NOTE | 2022-12-21 14:01 | NUR ---
RN NOTES BLOOD TRANSFUSION OF PRBC X1 (402 ML) INITIATED AT 1400 VIA IV ACCESS ON RAC G#20 WITH INITIAL DOSE RATE OF 60/ML/HR. WILL MONITOR FOR ANY ADVERSE/ALLERGIC REACTIONS.
--- NOTE | 2022-12-21 14:16 | NUR ---
RN NOTES NO ADVERSE/ALLERGIC REACTIONS AFTER 15 MINUTES OF STARTING BLOOD TRANSFUSION. V/S CHECKED, STABLE AND RECORDED. WILL CONTINUE TO MONITOR..
--- NOTE | 2022-12-21 14:27 | NUR ---
RN NOTES PT FOR NM MYOCARDIAC STRESS TEST TOMORROW. PT'S AT BEDSIDE AT THIS TIME. NM ANASTASIYA INES EXPLAINED HOW THE PROCEDURE WORK TO PT AND , BOTH VERBALIZED UNDERSTANDING. CONSENT SIGNED BY PT. NPO TO BE ENFORCED POST MIDNIGHT. WILL ENDORSE TO NEXT SHIFT NURSE..
[2022-12-21] MEDS: RIVAROXABAN 15 MG TABLET PO SCH (16:16)
[2022-12-21] MEDS: SOD FERRIC GLUC 125 MG in IV NS 0.9% 100 ML IV SCH (16:19)
--- NOTE | 2022-12-21 17:41 | NUR ---
RN NOTES BLOOD TRANSFUSION OF PRBC X1 (402 ML) VIA IV ACCESS ON RAC G#20 COMPLETED AND TOLERATED WELL BY PATIENT. NO ADVERSE/ALLERGIC REACTIONS NOTED. S/P BLOOD TRANSFUSION V/S TAKEN, STABLE AND RECORDED. PATIENT EATING HIS DINNER AT THIS TIME.
--- NOTE | 2022-12-21 18:35 | NUR ---
JUSTOWRITER OPERATOR CLOSING NOTES PATIENT AWAKE AND RESTING IN BED. HOB ELEVATED. A/O X 3. ABLE TO MAKE NEEDS KNOWN. ON OXYGEN VIA N/C @ 2LPM, TOLERATING WELL, BREATHING EVEN UNLABORED. PT FOR NUCLEAR MEDICINE MYOCARDIAC STRESS TEST TOMORROW MORNING, NPO POST MIDNIGHT TO BE ENFORCED. IV ACCESSES ON RAC #20G AND RIGHT HAND #22G BOTH SL, INTACT, PATENT AND FLUSHING WELL. TELE- MONITOR SHOWS CURRENT READING OF V-PACING, HR ON THE 80'S, NO C/O CARDIAC DISTRESS VOICED DURING SHIFT. ALL NEEDS/CARE ATTENDED WELL. SAFETY MEASURES KEPT IN PLACE: BED IN LOW AND LOCK POSITION, SIDE RAILS UP X2, CALL LIGHT AND TRAY TABLE WITHIN EASY REACH OF PT. WILL ENDORSE MAXIMILIAN TO EQUESTRIAN TRAINER NURSE.
--- NOTE | 2022-12-21 19:20 | NUR ---
AUTOMOBILE TECHNICIAN OPENING NOTE PATIENT IS LYING IN BED. HE IS ON RA, TOLERATED WELL. NO S/S OF DISTRESS OR SOB. HE IS ALERT AND ORIENTED, AO X 4. PATIENT ON EXTERNAL EMBROIDERY ASSISTANT, ON THE MONITOR, HIS HEART RHYTHM IS SR WITH V PACKING WITH HEART RATE OF 80S TO 90S. IV ACCESS IS AT HIS R AC, #20G, AND RIGHT HAND #22G. BOTH ARE SALINE LOCK. IV ARE PATENT AND INTACT, FLUSHING WELL. PATIENT WILL BE ON NPO AFTER MIDNIGHT TONIGHT. SAFETY MEASURES ARE IN PLACED: BED IN LOW AND LOCKED POSITION; SIDE RAILS UP X 2; CALL LIGHT AND TABLE ARE WITHIN EASY REACH. WILL CONTINUE MONITORING THE PATIENT AND PROVIDE THE CARE PATIENT NEEDS.
[2022-12-21] MEDS: LATANOPROST EYE DROP 0.005% 2.5 ML BOTTLE EACHEYE SCH (23:17)
[2022-12-21] MEDS: TAMSULOSIN 0.4 MG CAP.SR.24H PO SCH (23:20)
[2022-12-22] VITALS: BP 109/66
[2022-12-22 04:00] VITALS: BP 115/61
[2022-12-22] MEDS: METOPROLOL SUCCINATE 25 MG TAB.SR.24H PO SCH (06:41)
[2022-12-22 07:00] LABS: BASOPHILS % (AUTO) 0.3 % (0.0-2.0); EOSINOPHILS % (AUTO) 1.2 % (0.0-6.0); HEMATOCRIT 30 % (39-51); HEMOGLOBIN 8.8 g/dL (13.5-17.5); LYMPHOCYTES # (AUTO) 0.7 K/uL (0.8-4.8); LYMPHOCYTES % (AUTO) 8.2 % (20.0-44.0); MEAN CORPUSCULAR HGB CONC 29 g/dl (31.0-36.0); MEAN CORPUSCULAR VOLUME 73 fL (80-96); MONOCYTES # (AUTO) 0.8 K/uL (0.1-1.30); MONOCYTES % (AUTO) 9.6 % (2.0-12.0); NEUTROPHILS # (AUTO) 6.5 K/uL (1.8-8.9); NEUTROPHILS % (AUTO) 80.7 % (43.0-81.0); PLATELET COUNT (AUTO) 184 K/uL (150-450); RED BLOOD CELL COUNT(AUTO) 4.15 MIL/uL (4.5-6.0)
[2022-12-22 07:14] LABS: ALANINE AMINOTRANSFERASE 23 U/L (12-78); ALKALINE PHOSPHATASE 94 U/L (46-116); ASPARTATE AMINOTRANSFERASE 27 U/L (15-37); BILIRUBIN,TOTAL 1.5 mg/dL (0.2-1.0); CARBON DIOXIDE 29 mmol/L (21-32); CHLORIDE 99 mmol/L (98-107); CREATININE 2.4 mg/dL (0.6-1.3); GLUCOSE 114 mg/dL (74-106); POTASSIUM 4.1 mmol/L (3.5-5.1); SODIUM SERUM 136 mmol/L (136-145); TOTAL PROTEIN, SERUM 6.7 g/dL (6.4-8.2); UREA NITROGEN, BLOOD 40 mg/dL (7-18)
[2022-12-22] MEDS: LEVOTHYROXINE SODIUM 25 MCG TABLET PO SCH (07:30)
[2022-12-22] MEDS: PANTOPRAZOLE 40 MG TABLET.DR PO SCH (07:30)
--- NOTE | 2022-12-22 07:30 | NUR ---
RN OPENING NOTE PATIENT AWAKE IN BED RESTING, A/O X 2. NO S/S OF PAIN NOTED AT THIS TIME. ON 2L OXYGEN VIA NC, BREATHING EVEN UNLABORED, NO DISTRESS OR SHORTNESS OF BREATH NOTED AT THIS TIME. IV ACCESS R HAND #22G, INTACT PATENT AND FLUSHING WELL. PATIENT WITH EXTERNAL FIRE ALARM OPERATOR WITH CURRENT READING OF V-PACING AND HR OF 90'S, NO CARDIAC DISTRESS NOTED. FALL AND SAFETY MEASURES IN PLACE, BED ALARM ON, BED IN LOW AND LOCK POSITION, CALL LIGHT AND TABLE WITHIN EASY REACH, SIDE RAILS UP X2. WILL CONTINUE TO MONITOR.
[2022-12-22] MEDS ORDERED: REGADENOSON 0.4 MG/5 ML DISP.SYRIN IVP ONE (08:00)
[2022-12-22] MEDS: ATORVASTATIN 40 MG TABLET PO SCH (08:51)
[2022-12-22] MEDS: CLOPIDOGREL BISULFATE 75 MG TABLET PO SCH (08:51)
[2022-12-22] MEDS: AMIODARONE HCL 200 MG TABLET PO SCH (08:51)
[2022-12-22] MEDS ORDERED: METO25TA4 PO (08:55)
[2022-12-22] MEDS ORDERED: CLOP75TA15 PO (08:55)
[2022-12-22] MEDS ORDERED: FERR325T23 PO (08:55)
[2022-12-22] MEDS ORDERED: LEVO25TA7 PO (08:55)
[2022-12-22] MEDS ORDERED: RIVA15TA PO (08:55)
[2022-12-22] MEDS: FUROSEMIDE 40 MG TABLET PO SCH (09:00)
--- NOTE | 2022-12-22 09:53 | NUR ---
RN NOTE PATIENT IS BACK IN HIS ROOM HE WENT FOR A NW MYOCARDIAL STRESS TEST, PATIENT IS RESTING COMFORTABLY.
[2022-12-22] MEDS: SOD FERRIC GLUC 125 MG in IV NS 0.9% 100 ML IV SCH (13:51)
[2022-12-22] MEDS: RIVAROXABAN 15 MG TABLET PO SCH (16:14)
--- NOTE | 2022-12-22 19:10 | NUR ---
HEALTHCARE SALES REPRESENTATIVE OPENING NOTE PATIENT IS LYING IN BED. HE IS ON RA, TOLERATED WELL. NO S/S OF DISTRESS OR SOB. HE IS ALERT AND ORIENTED, AO X 4. PATIENT IS ON EXTERNAL INTERMODAL OWNER OPERATOR TRUCK DRIVER, ON THE MONITOR, HIS HEART RHYTHM IS SR WITH V PACKING WITH HEART RATE OF 80S TO 90S. IV ACCESS IS AT HIS RIGHT HAND #22G, SALINE LOCK. IV IS PATENT AND INTACT, FLUSHING WELL. SAFETY MEASURES ARE IN PLACED: BED IN LOW AND LOCKED POSITION; SIDE RAILS UP X 2; CALL LIGHT AND TABLE ARE WITHIN EASY REACH. WILL CONTINUE MONITORING THE PATIENT AND PROVIDE THE CARE PATIENT NEEDS.
--- NOTE | 2022-12-22 19:59 | NUR ---
RN CLOSING NOTE PATIENT AWAKE IN BED RESTING, A/O X 2. NO S/S OF PAIN NOTED AT THIS TIME. ON 2L OXYGEN VIA NC, BREATHING EVEN UNLABORED, NO DISTRESS OR SHORTNESS OF BREATH NOTED AT THIS TIME. IV ACCESS R HAND #22G, INTACT PATENT AND FLUSHING WELL. PATIENT WITH EXTERNAL DISTRIBUTOR ADVERTISING MATERIAL WAS REMOVED, PATIENT HAVE D/C ORDER TO GO HOME. SCHEDULED MEDICATIONS ADMINISTERED. SKIN CARE PROVIDED. FALL AND SAFETY MEASURES IN PLACE, BED ALARM ON, BED IN LOW AND LOCK POSITION, CALL LIGHT AND TABLE WITHIN EASY REACH, SIDE RAILS UP X2. ALL NEEDS ATTENDED AND ANTICIPATED. WILL ENDORSE TO ELECTRIC MOTOR WINDERS ASSEMBLER NURSE.
[2022-12-22 20:00] VITALS: BP 106/56
--- NOTE | 2022-12-22 21:00 | NUR ---
GRADES [address] ALLEN REPLIED THAT IT IS OKAY TO LET THE PATIENT STAY IN THE HOSPITAL FOR TONIGHT PER PATIENT'S FAMILY AND HIS PRIMARY DOCTOR REQUESTING.
[2022-12-22] MEDS: TAMSULOSIN 0.4 MG CAP.SR.24H PO SCH (21:05)
[2022-12-22] MEDS: LATANOPROST EYE DROP 0.005% 2.5 ML BOTTLE EACHEYE SCH (21:05)
--- NOTE | 2022-12-22 21:20 | NUR ---
AREA INTELLIGENCE TECHNICIAN NOTE RECEIVED DR. ALLEN REPLY REGARDING PT'S FAMILY AND HIS PRIMARY DOCTOR'S REQUEST FOR LETTING THE PATIENT TO STAY IN THE HOSPITAL TONIGHT. CHARGE NURSE, MK GUTIERREZ.
[2022-12-23] VITALS: BP 125/84
[2022-12-23] MEDS: METOPROLOL SUCCINATE 25 MG TAB.SR.24H PO SCH (05:51)
[2022-12-23 06:30] VITALS: BP 102/68
--- NOTE | 2022-12-23 07:30 | NUR ---
RN OPENING NOTE PATIENT AWAKE IN BED RESTING, A/O X 2. NO S/S OF PAIN NOTED AT THIS TIME. ON ROOM AIR, BREATHING EVEN UNLABORED, NO DISTRESS OR SHORTNESS OF BREATH NOTED AT THIS TIME. IV ACCESS R HAND #22G, INTACT PATENT AND FLUSHING WELL. PATIENT WITH EXTERNAL THEATER COMPANY PRODUCER WITH CURRENT READING OF V-PACING AND HR OF 90'S, NO CARDIAC DISTRESS NOTED. FALL AND SAFETY MEASURES IN PLACE, BED ALARM ON, BED IN LOW AND LOCK POSITION, CALL LIGHT AND TABLE WITHIN EASY REACH, SIDE RAILS UP X2. WILL CONTINUE TO MONITOR.
--- NOTE | 2022-12-23 07:42 | NUR ---
PRIMARY SPECIAL EDUCATOR CLOSING NOTE PATIENT IS LYING IN BED. HE IS ON RA, TOLERATED WELL. NO S/S OF DISTRESS OR SOB. HE IS ALERT AND ORIENTED, AO X 4. PATIENT IS ON EXTERNAL HALVER MACHINE OPERATOR, ON THE MONITOR, HIS HEART RHYTHM IS SR WITH V PACKING WITH HEART RATE OF 80S TO 90S. IV ACCESS IS AT HIS RIGHT HAND #22G, SALINE LOCK. IV IS PATENT AND INTACT, FLUSHING WELL. SAFETY MEASURES ARE IN PLACED: BED IN LOW AND LOCKED POSITION; SIDE RAILS UP X 2; CALL LIGHT AND TABLE ARE WITHIN EASY REACH. ENDORSED NEXT SHIFT NURSE FOR CONTINUING PT CARE.
[2022-12-23] MEDS: ATORVASTATIN 40 MG TABLET PO SCH (09:34)
[2022-12-23 09:35] VITALS: BP 148/69
[2022-12-23] MEDS: AMIODARONE HCL 200 MG TABLET PO SCH (09:35)
[2022-12-23] MEDS: CLOPIDOGREL BISULFATE 75 MG TABLET PO SCH (09:35)
[2022-12-23] MEDS: FUROSEMIDE 40 MG TABLET PO SCH (09:35)
[2022-12-23] MEDS: LEVOTHYROXINE SODIUM 25 MCG TABLET PO SCH (09:38)
[2022-12-23] MEDS: PANTOPRAZOLE 40 MG TABLET.DR PO SCH (09:38)
--- NOTE | 2022-12-23 14:03 | NUR ---
TELEVISION NEWS PHOTOGRAPHER NOTE PATIENT DISCHARGE IN STABLE MEDICAL CONDITION. A/O X2. V/S TAKEN, STABLE AND RECORDED. NO IV ACCESS. NAME ARM BAND REMOVED. EXTERNAL LABORER OPERATOR REMOVED AND RETURNED TO TELE DESK. PATIENT REFUSED SKIN ASSESSMENT AND PICTURES, PER PREVIOUS SKIN ASSESSMENT PATENT DID NOT HAVE ANY OPEN WOUNDS. ALL BELONGINGS CHECKED AND BELONGING LIST SIGNED. HEALTH TEACHING AND DISCHARGE INSTRUCTIONS GIVEN TO PATIENT AND PATIENT'S AND VERBALIZED UNDERSTANDING. INSTRUCTED PATIENT AND FAMILY TO FOLLOW UP WITH PRIMARY CARE DOCTOR. DISCUSSED PRESCRIPTIONS WITH PATIENT AND FAMILY. INSTRUCTED IN CASE OF EMERGENCY TO CALL 911 OR GO TO NEAREST ER. PATIENT LEFT UNIT VIA WHEELCHAIR WITH NO SIGNS OF DISTRESS, ACCOMPANIED BY STEAM TRAP MAN TO THE LOBBY. PATIENT LEFT HOME WITH HIS . CHARGE NURSE AWARE OF DISCHARGE.
== END 2022-12-23 13:50 | disposition home or self-care (01) | DRG 280 ==
LOC: ER 13:33 → MED 12-20 00:02 → TELE 12-20 00:48
PROVIDERS: ADMIT Internal Medicine; ATTEND Internal Medicine
PROC: 30233N1 Transfusion of Nonautologous Red Blood Cells into Peripheral Vein, Percutaneous Approach (ICD-10-PCS; principal; 2022-12-21)
DX: I21.4 Non-ST elevation (NSTEMI) myocardial infarction (principal); N17.0 Acute kidney failure with tubular necrosis; I13.0 Hypertensive heart and chronic kidney disease with heart failure and stage 1 through stage 4 chronic kidney disease, or unspecified chronic kidney disease; I50.22 Chronic systolic (congestive) heart failure; D64.9 Anemia, unspecified; N18.30 Chronic kidney disease, stage 3 unspecified; I48.91 Unspecified atrial fibrillation; I25.10 Atherosclerotic heart disease of native coronary artery without angina pectoris; Z20.822 Contact with and (suspected) exposure to COVID-19; E78.5 Hyperlipidemia, unspecified; I25.2 Old myocardial infarction; Z95.5 Presence of coronary angioplasty implant and graft; Z95.1 Presence of aortocoronary bypass graft; Z95.0 Presence of cardiac pacemaker; E03.9 Hypothyroidism, unspecified; Z79.01 Long term (current) use of anticoagulants; Z79.899 Other long term (current) drug therapy; Z79.02 Long term (current) use of antithrombotics/antiplatelets; K59.09 Other constipation; N40.0 Benign prostatic hyperplasia without lower urinary tract symptoms; N20.0 Calculus of kidney
CPT/HCPCS: 36415; 71045-TC; 80048-TC; 80053-TC; 80061-TC; 80076-TC; 81001; 82728-TC; 83540-TC; 83690-TC; 83735-TC; 83880; 84100-TC; 84439-TC; 84443-TC; 84484-TC; 85025-TC; 86850-TC; 87081-TC; 87086-TC; 93307-TC; A9502; C9803; G0378; J1940; J2270; J2405; J2785; J2916; J7030; J7040; P9016; Q0163

== ENCOUNTER 2022-12-24 13:44 | Emergency (ER) | payer BC ==
[~2022-12-24] VITALS: Ht 157.5 cm; Wt 68.0 kg
[~2022-12-24 13:44] MED LIST changes: -CARV12.52 PO; -CETI-90 PO; -CYCL10TA9 PO; +FERR325T23 PO; -FLUT9.9S NS; -HYDR-4209 PO; +LATA2.5D15 EACHEYE; +LEVO25TA7 PO; -LEVO25TA9 PO; +METO25TA4 PO; -NAPR-1164 PO; -ONDA4TAB11 PO; -POLY119P2 PO; -SACU1TAB7 PO
--- NOTE | 2022-12-24 14:30 | NUR ---
Daughter (Batsheva) at bedside. Face cleaned of blood
[2022-12-24 15:30] LABS: BASOPHILS % (AUTO) 0.1 % (0.0-2.0); EOSINOPHILS % (AUTO) 1.1 % (0.0-6.0); HEMATOCRIT 33 % (39-51); HEMOGLOBIN 9.4 g/dL (13.5-17.5); LYMPHOCYTES # (AUTO) 0.6 K/uL (0.8-4.8); LYMPHOCYTES % (AUTO) 7.1 % (20.0-44.0); MEAN CORPUSCULAR HGB CONC 29 g/dl (31.0-36.0); MEAN CORPUSCULAR VOLUME 75 fL (80-96); MONOCYTES % (AUTO) 12.5 % (2.0-12.0); NEUTROPHILS # (AUTO) 6.4 K/uL (1.8-8.9); NEUTROPHILS % (AUTO) 79.2 % (43.0-81.0); PLATELET COUNT (AUTO) 223 K/uL (150-450); RED BLOOD CELL COUNT(AUTO) 4.36 MIL/uL (4.5-6.0); WHITE BLOOD COUNT (AUTO) 8.1 K/uL (4.3-11.0)
--- NOTE | 2022-12-24 15:30 | NUR ---
Family at bedside updated with plan of care
[2022-12-24 15:49] LABS: CALCIUM, SERUM 8.4 mg/dL (8.5-10.1); CARBON DIOXIDE 26 mmol/L (21-32); CHLORIDE 100 mmol/L (98-107); CREATININE 2.3 mg/dL (0.6-1.3); GLUCOSE 121 mg/dL (74-106); POTASSIUM 4.1 mmol/L (3.5-5.1); SODIUM SERUM 134 mmol/L (136-145); UREA NITROGEN, BLOOD 45 mg/dL (7-18)
[2022-12-24 15:55] LABS: ALANINE AMINOTRANSFERASE 35 U/L (12-78); ALBUMIN 2.9 g/dL (3.4-5.0); ALKALINE PHOSPHATASE 116 U/L (46-116); ASPARTATE AMINOTRANSFERASE 40 U/L (15-37); BILIRUBIN,TOTAL 1.1 mg/dL (0.2-1.0); TOTAL PROTEIN, SERUM 6.9 g/dL (6.4-8.2)
[2022-12-24 16:07] LABS: BILIRUBIN,DIRECT 0.7 mg/dL (0.0-0.2)
[2022-12-24 16:26] LABS: LYMPHOCYTES % (MANUAL) 11 % (16-48); MONOCYTES % (MANUAL) 9 % (0-11.0); NEUTROPHILS % (MANUAL) 80 (42-76)
--- NOTE | 2022-12-24 16:56 | NUR ---
FAXED INTERFACILITY CRITICAL TRAUMA TRANSFER REQUEST TO [phone]
--- NOTE | 2022-12-24 17:01 | NUR ---
CALLED [facility] [phone] DR. SOLOMON SPEAKING WITH DR. TURNER
--- NOTE | 2022-12-24 17:06 | NUR ---
CALLED [phone] RESPONDING.
--- NOTE | 2022-12-24 17:13 | NUR ---
Transfer info: Accepted to : [facility] Accepting MD: Radha RN Report to: Nayana Transporting unit: [facility] Condition on transfer: Stable, No Acute distress
[2022-12-24 17:27] VITALS: BP 129/69
[2022-12-24] MEDS ORDERED: DESMOPRESSIN 20 MCG in IV NS 0.9% 50 ML IV ONE (17:30)
== END 2022-12-24 17:28 ==
LOC: ER 13:46
DX: S05.11XA Contusion of eyeball and orbital tissues, right eye, initial encounter (principal); S36.00XA Unspecified injury of spleen, initial encounter; H11.31 Conjunctival hemorrhage, right eye; D64.9 Anemia, unspecified; R10.12 Left upper quadrant pain; E78.5 Hyperlipidemia, unspecified; I25.10 Atherosclerotic heart disease of native coronary artery without angina pectoris; I11.0 Hypertensive heart disease with heart failure; I50.9 Heart failure, unspecified; I48.91 Unspecified atrial fibrillation; Z95.1 Presence of aortocoronary bypass graft; E78.00 Pure hypercholesterolemia, unspecified; Z98.890 Other specified postprocedural states; Z79.899 Other long term (current) drug therapy; W07.XXXA Fall from chair, initial encounter; Y93.89 Activity, other specified; Y92.89 Other specified places as the place of occurrence of the external cause; Y99.8 Other external cause status
CPT/HCPCS: 99291; 93308; 72125; 76705; 93005; 71045; 70450; 70486; 74176; 85025; 80048; 83605; 80076; 36415; 84484 ×2; 85730; 86850; 85007; A6403